=== PATIENT | female | born 1990 | race Caucasian/White ===

== ENCOUNTER 2016-11-30 00:43 | Emergency (ER) | payer OTHER ==
[2016-11-30 01:08] VITALS: BP 134/90; PULSE 67; TEMP 98.1; BMI 24.7
--- NOTE | 2016-11-30 01:33 | PDOC ---
History of Present Illness - General Chief Complaint: Bone Injury Stated Complaint: I THINK I FRACTURE MY ARM Time Seen by Provider: 11/30/16 01:07 History Source: Patient Exam Limitations: No Limitations - History of Present Illness Initial Comments: 11/30/16 01:45 26-year-old female right hand dominant presents to the emergency department complaining of pain to the right elbow. Patient states that she was backing out of her son's closet, she banged her right elbow against the wall. Patient denies any extremity numbness or tingling sensation. Pain is described as 4/10 sharp nonradiating intermittent discomfort. Pain is exacerbated on movement and touch and alleviated at rest. Patient states when she was a toddler she fractured her right elbow x2. Patient denies having surgery in the past Occurred: reports: just prior to arrival Upper Extremity Pain Location: right: elbow Method of Injury: reports: direct blow Modifying Factors: improves with: None Extremity Pain Location - Extremity Pain Location Extremity Pain Locations: right: elbow Past History - Past Medical History Allergies/Adverse Reactions: Allergies Allergy/AdvReac Type Severity Reaction Status Date / Time pineapple Allergy Verified 11/30/16 00:59 Home Medications: Ambulatory Orders NK [No Known Home Medication] 11/30/16 GI Disorders: Yes (Kidney stones) Disorders: Yes (kidney stones) Hypercholesterolemia: Yes - Psycho/Social/Smoking Cessation Hx Anxiety: No Suicidal Ideation: No Smoking Status: No Smoking History: Never smoked Have you smoked in the past 12 months: No Number of Cigarettes Smoked Daily: 0 Hx Alcohol Use: No Drug/Substance Use Hx: No Substance Use Type: None Hx Substance Use Treatment: No Review of Systems - Review of Systems Able to Perform ROS?: Yes Comments:: 11/30/16 01:42 CONSTITUTIONAL: Absent: fever, chills, diaphoresis, generalized weakness, malaise, loss of appetite MUSCULOSKELETAL: right elbow/pain Absent: myalgia, arthralgia, joint swelling SKIN: Absent: rash, itching, pallor Is the patient limited Faroese proficient: No *Physical Exam - Vital Signs Last Vital Signs Temp Pulse Resp BP Pulse Ox 98.1 F 67 18 134/90 99 11/30/16 01:00 11/30/16 01:00 11/30/16 01:00 11/30/16 01:00 11/30/16 01:00 - Physical Exam Comments: 11/30/16 01:44 GENERAL: Well developed, well nourished. Awake and alert. No acute distress. MUSCULOSKELETAL Right elbow: decreased R.O.M./neg swelling, +Pain on palp neg obvious deformities No bony deformities or tenderness. No cyanosis. No clubbing. No edema. No calf tenderness. SKIN: Warm and dry. Normal capillary refill. No rashes. No jaundice. *DC/Admit/Observation/Transfer Diagnosis at time of Disposition: Contusion of right elbow Qualifiers: Encounter type: initial encounter Qualified Code(s): S50.01XA - Contusion of right elbow, initial encounter - Discharge Dispostion Admit: No - Referrals Referrals: Lorena Yap MD [Primary Care Provider] - Britton Molina MD [Staff Physician] - - Patient Instructions Printed Discharge Instructions: DI for Contusion Additional Instructions: Return to the Er for severe/persistent/worsening symptoms
[2016-11-30] MEDS ORDERED: IBUPROFEN 600 MG TABLET (FP) PO ONE ×2 (02:47→02:50)
== END 2016-11-30 03:44 | disposition home or self-care (01) ==
LOC: JER 00:43
DX: S50.01XA Contusion of right elbow, initial encounter (principal); W22.01XA Walked into wall, initial encounter; Y93.89 Activity, other specified; Y92.008 Other place in unspecified non-institutional (private) residence as the place of occurrence of the external cause; Z87.442 Personal history of urinary calculi; E78.00 Pure hypercholesterolemia, unspecified
CPT/HCPCS: 73070-TC-RT; 84703; 99281-25

== ENCOUNTER 2017-02-25 13:27 | Emergency (ER) | payer OTHER ==
[2017-02-25 13:32] VITALS: BMI 26.2
[2017-02-25] MEDS ORDERED: SODIUM CHLORIDE 1,000 ML IV STA (13:49)
[2017-02-25] MEDS ORDERED: METOCLOPRAMIDE HCL INJECTION 10 MG/2 ML VIAL IVPB ONE (13:49)
--- NOTE | 2017-02-25 13:49 | PDOC ---
History of Present Illness - General History Source: Patient Exam Limitations: No Limitations - History of Present Illness Initial Comments: 02/25/17 13:56 The patient is a 26 year old female, with a significant past medical history of hypercholesterolemia and kidney stones (since 2012), who presents to the emergency department s/p lipotripsy with post-op nausea and vomiting. The patient reports the surgery was done yesterday, at [facility] by Dr.Neil Alvarado, to remove a kidney stone on the right side. The patient reports the next day having nausea and vomiting right after eating, noting blood in her vomit. She notes her urine has been pink in color, with some blood clots in her urine. She arrives also with chief complaints of right sided flank pain. She denies recent fevers, chills, headache or dizziness. She denies recent nausea, vomit, diarrhea or constipation. She denies recent dysuria, frequency, or urgency. She denies recent chest pain or shortness of breath. Allergies: NKA Past surgical history: None reported. Social history: Nonsmoker. Denies EtOH use and recreational drug use. Primary Care Physician: <Hussein Hirsch - Last Filed: 02/25/17 15:42> - General History Source: Patient Exam Limitations: No Limitations <Rylie Pickett - Last Filed: 02/25/17 17:11> - General Chief Complaint: Nausea/Vomiting Stated Complaint: POST-SURG COMPLICATIONS/ VOMITING Time Seen by Provider: 02/25/17 13:48 Past History <Hussein Hirsch - Last Filed: 02/25/17 15:42> - Past Medical History GI Disorders: Yes (Kidney stones) Disorders: Yes (kidney stones) Hypercholesterolemia: Yes - Psycho/Social/Smoking Cessation Hx Anxiety: No Suicidal Ideation: No Smoking Status: No Smoking History: Never smoked Have you smoked in the past 12 months: No Number of Cigarettes Smoked Daily: 0 Hx Alcohol Use: Yes (SOCIAL) Drug/Substance Use Hx: No Substance Use Type: None Hx Substance Use Treatment: No <Rylie Pickett - Last Filed: 02/25/17 17:11> - Past Medical History Allergies/Adverse Reactions: Allergies Allergy/AdvReac Type Severity Reaction Status Date / Time pineapple Allergy Difficulty Verified 02/25/17 13:32 Breathing Home Medications: Ambulatory Orders NK [No Known Home Medication] 11/30/16 Review of Systems - Review of Systems Able to Perform ROS?: Yes Comments:: 02/25/17 13:56 GENERAL/CONSTITUTIONAL: No: fever, chills, weakness, loss of appetite. HEAD, EYES, EARS, NOSE AND THROAT: No: change in vision, ear pain, discharge, sore throat, throat swelling. CARDIOVASCULAR: No: chest pain, lightheadedness, palpitations, syncope RESPIRATORY: No: cough, shortness of breath, wheezing, hemoptysis, stridor. GASTROINTESTINAL: +: nausea, vomiting, flank pain. No: diarrhea, abdominal cramping, rectal bleeding, constipation. GENITOURINARY: No: dysuria, frequency, urgency. MUSCULOSKELETAL: No: back pain, neck pain, joint pain, muscle swelling or pain SKIN : No: lesions, pallor, rash or easy bruising. NEUROLOGIC: No: headache, vertigo, paresthesias, weakness ENDOCRINE: No: unexplained weight gain or loss HEMATOLOGIC/LYMPHATIC: No: anemia, easy bleeding, swelling nodes. <Hussein Hirsch - Last Filed: 02/25/17 15:42> *Physical Exam - Vital Signs Last Vital Signs Temp Pulse Resp BP Pulse Ox 97.6 F 61 18 119/68 100 02/25/17 13:28 02/25/17 13:28 02/25/17 13:28 02/25/17 13:28 02/25/17 13:28 - Physical Exam Comments: 02/25/17 13:57 GENERAL: The patient is in no acute distress. HEAD: Normal with no signs of trauma. EYES: PERRLA, EOMI, sclera anicteric, conjunctiva clear. ENT: Ears normal, nares patent, oropharynx clear without exudates. Moist mucous membranes. NECK: Normal range of motion, supple without lymphadenopathy, JVD, or masses. LUNGS: Breath sounds equal, clear to auscultation bilaterally. No wheezes, and no crackles. HEART: Regular rate and rhythm, normal S1 and S2 without murmur, rub or gallop. ABDOMEN: Soft, normoactive bowel sounds.Right sided abdominal pain and tenderness. EXTREMITIES: Normal range of motion, no edema. No clubbing or cyanosis. No erythema, or tenderness. NEUROLOGICAL: Cranial nerves II through XII grossly intact. Normal speech. No focal neurological deficits. MUSCULOSKELETAL: Back non-tender to palpation, no CVA tenderness SKIN: Warm, Dry, normal turgor, no rashes or lesions noted.: <Hussein Hirsch - Last Filed: 02/25/17 15:42> - Vital Signs Last Vital Signs Temp Pulse Resp BP Pulse Ox 97.6 F 61 18 119/68 100 02/25/17 13:28 02/25/17 13:28 02/25/17 13:28 02/25/17 13:28 02/25/17 13:28 <Rylie Pickett - Last Filed: 02/25/17 17:11> ED Treatment Course - LABORATORY CBC & Chemistry Diagram: 02/25/17 14:15 02/25/17 14:15 <Hussein Hirsch - Last Filed: 02/25/17 15:42> - LABORATORY CBC & Chemistry Diagram: 02/25/17 14:15 02/25/17 14:15 <Rylie Pickett - Last Filed: 02/25/17 17:11> Medical Decision Making - Medical Decision Making 02/25/17 15:42 Call made to , awaiting call back. <Hussein Hirsch - Last Filed: 02/25/17 15:42> - Medical Decision Making 02/25/17 13:48 A portion of this note was documented by scribe services under my direction. I have reviewed the details of the note, within reason, and agree with the documentation with the following case summary and management plan written by me. Nursing documentation reviewed and incorporated into medical decision making 26 yo F h/o renal stones in the past pt presents to the ER due to severe right sided abdominal pain Pt is s/p lithotrypsy and stenting yesterday Pt has had severe pain since then Pt has nausea and vomiting DD: Obstructing stone, Stent movement, pyelonephritis Will do labs Will do KUB Will re assess 02/25/17 15:04 Laboratory Tests 02/25/17 02/25/17 02/25/17 14:15 14:15 14:15 WBC 9.8 D Hgb 13.3 Hct 38.6 Plt Count 267 D BUN 6 L Creatinine 0.7 D Urine Blood 3+ H Urine Nitrite Negative Ur Leukocyte Esterase 1+ H 02/25/17 16:[address] alvarado he states if no fever, no leukocytosis, pt can be discharged His colleague also called States, pt should be given Ceftriaxone as well 02/25/17 16:55 Will discharge to home <Rylie Pickett - Last Filed: 02/25/17 17:11> *DC/Admit/Observation/Transfer - Attestations Scribe Attestion: 02/25/17 13:57 Documentation prepared by Hussein Hirsch, acting as medical office assistant instructor for Rylie Pickett MD. <Hussein Hirsch - Last Filed: 02/25/17 15:42> - Discharge Dispostion Admit: No <Rylie Pickett - Last Filed: 02/25/17 17:11> Diagnosis at time of Disposition: Pain due to ureteral stent Qualifiers: Encounter type: initial encounter Qualified Code(s): T83.84XA - Pain due to genitourinary prosthetic devices, implants and grafts, initial encounter - Discharge Dispostion Disposition: HOME Condition at time of disposition: Stable - Referrals Referrals: Lorena Yap MD [Primary Care Provider] - - Patient Instructions Printed Discharge Instructions: Ureteral Stent Placement, DI for Ureteral Stent Placement Additional Instructions: Thank you for coming in to the ER today Please Monitor yourself for fevers Please follow up tomorrow in Dr Alvarado's office at 9am Please take pain medications as prescribed for pain You MUST return to the ER for fevers, severe pain, vomiting, any other concerns or complaints
[2017-02-25] MEDS ORDERED: HYDROmorphone HCL CARPU-JECT 1 MG/1 ML DISP.SYRIN IVPB ONE (13:58)
[2017-02-25] MEDS ORDERED: METOCLOPRAMIDE HCL INJECTION 10 MG/2 ML VIAL ONE (14:02)
[2017-02-25] MEDS ORDERED: HYDROmorphone HCL CARPU-JECT 1 MG/1 ML DISP.SYRIN ONE (14:02)
[2017-02-25 14:30] LABS: URINE APPEARANCE CLEAR; URINE BILIRUBIN NEGATIVE (NEGATIVE); URINE COLOR STRAW; URINE GLUCOSE (UA) NEGATIVE (NEGATIVE); URINE KETONE TRACE (NEGATIVE); URINE NITRITE NEGATIVE (NEGATIVE); URINE UROBILINOGEN NEGATIVE E.U./dl (0.2-1.0)
[2017-02-25 14:33] LABS: BASOPHIL 0.5 % (0-2.0); EOSINOPHIL 1.2 % (0-4.5); MCH 31.3 pg (25.7-33.7); MCHC 34.5 g/dl (32.0-36.0); MEAN CELL VOLUME 90.7 fl (80-96); MEAN PLT VOLUME 9.5 fl (7.5-11.1); NEUTROPHILS 69.2 % (42.8-82.8); PLATELET COUNT 267 K/MM3 (134-434); RDW 12.8 % (11.6-15.6); WHITE BLOOD COUNT 9.8 K/mm3 (4.0-10.0)
[2017-02-25 14:54] LABS: ALBUMIN 3.8 g/dl (3.4-5.0); ALK PHOS 59 U/L (45-117); AMYLASE 43 U/L (25-115); ANION GAP 9 (8-16); BILIRUBIN,TOTAL 0.5 mg/dL (0.2-1.0); CALCIUM 9.3 mg/dL (8.5-10.1); CO2 22 mmol/L (21-32); CREATININE 0.7 mg/dL (0.55-1.02); GLUCOSE,RANDOM 88 mg/dL (74-106); SGOT/AST 18 U/L (15-37); SGPT/ALT 17 U/L (12-78); TOT PROT 7.7 g/dl (6.4-8.2); URINE BLOOD 3+ (NEGATIVE); URINE LEUK ESTERASE 1+ (NEGATIVE); URINE PROTEIN 1+ (NEGATIVE)
[2017-02-25 15:04] LABS: URINE BACTERIA RARE /hpf (NONE SEEN); URINE MUCUS RARE; URINE RBC 44 /hpf (0-3); URINE WBC 17 /hpf (3-5)
[2017-02-25] MEDS ORDERED: CEFTRIAXONE 1 GM in DEXTROSE 5%-WATER - 50 ML IVPB ONE (16:20)
[2017-02-25] MEDS ORDERED: CEFTRIAXONE 50 ML ONE (16:23)
[2017-02-25 17:20] VITALS: BP 125/80; PULSE 87; TEMP 98.3
== END 2017-02-25 17:20 | disposition home or self-care (01) ==
LOC: JER 13:27
PROC: 3E02329 Introduction of Other Anti-infective into Muscle, Percutaneous Approach (ICD-10-PCS; principal; 2017-02-25)
PROC: 3E033NZ Introduction of Analgesics, Hypnotics, Sedatives into Peripheral Vein, Percutaneous Approach (ICD-10-PCS; 2017-02-25)
PROC: 3E033GC Introduction of Other Therapeutic Substance into Peripheral Vein, Percutaneous Approach (ICD-10-PCS; 2017-02-25)
PROC: 3E0337Z Introduction of Electrolytic and Water Balance Substance into Peripheral Vein, Percutaneous Approach (ICD-10-PCS; 2017-02-25)
DX: T83.84XA Pain due to genitourinary prosthetic devices, implants and grafts, initial encounter (principal)
CPT/HCPCS: 36415; 74000-TC; 80053; 81003; 81015; 82150; 83690; 84703; 85025; 87086; 96361; 96365; 96375; 99283-25

== ENCOUNTER 2017-07-29 22:45 | Emergency (ER) | payer OTHER ==
[2017-07-29 23:02] VITALS: BP 142/93; PULSE 78; TEMP 98.5; BMI 26.4
--- NOTE | 2017-07-30 01:01 | PDOC ---
History of Present Illness - History of Present Illness Initial Comments: 07/30/17 01:07 The patient is a 27 year old female, with a significant past medical history of hypercholesterolemia and kidney stones (since 2012), who presents to the emergency department with pain under the 4th digit of her left foot. The patient reports having a pedicure about 1.5 weeks ago, developing a blister to the base of her left 4th toe a day or two afterwards that resolved untreated after a couple of days, however, presents today with tenderness to the site where the blister initially was. She reports there is pain with movement of her 4th left toe. Allergies: NKA Past surgical history: None reported. Social history: Nonsmoker. Denies EtOH use and recreational drug use. Primary Care Physician: <Toyin Michelle - Last Filed: 07/30/17 01:07> - General History Source: Patient <JaquanJosh rivera - Last Filed: 07/30/17 01:31> - General Chief Complaint: Pain Stated Complaint: FOOT INJURY Time Seen by Provider: 07/30/17 00:58 Past History <Toyin Michelle - Last Filed: 07/30/17 01:07> - Past Medical History COPD: No GI Disorders: Yes (Kidney stones) Disorders: Yes (kidney stones) Hypercholesterolemia: Yes - Suicide/Smoking/Psychosocial Hx Smoking Status: No Smoking History: Never smoked Have you smoked in the past 12 months: No Number of Cigarettes Smoked Daily: 0 Information on smoking cessation initiated: No Hx Alcohol Use: No Drug/Substance Use Hx: No Substance Use Type: None Hx Substance Use Treatment: No <Josh Marvin - Last Filed: 07/30/17 01:31> - Past Medical History Allergies/Adverse Reactions: Allergies Allergy/AdvReac Type Severity Reaction Status Date / Time pineapple Allergy Difficulty Verified 07/29/17 22:52 Breathing Home Medications: Ambulatory Orders Ibuprofen [Motrin] 600 mg PO TID #30 tablet 07/30/17 Oxycodone HCl/Acetaminophen [Percocet 5-325 mg Tablet] 1 - 2 tab PO Q6H #14 tablet MDD 4 07/30/17 Sulfamethoxazole/Trimethoprim [Bactrim *Ds*] 1 tab PO BID #20 tablet 07/30/17 Review of Systems - Review of Systems Able to Perform ROS?: Yes Comments:: 07/30/17 01:07 CONSTITUTIONAL: Absent: fever, no chills, no fatigue EYES: Absent: visual changes ENT: Absent: ear pain, no sore throat CARDIOVASCULAR: Absent: chest pain, no palpitations RESPIRATORY: Absent: cough, no SOB GI: Absent: abdominal pain, no nausea, no vomiting, no constipation, no diarrhea GENITOURINARY: Absent: dysuria, no frequency, no hematuria MUSCULOSKELETAL: (+) pain to area under the left 4th toe. Absent: back pain, no arthralgia, no myalgia SKIN: Absent: rash NEURO: Absent: headache <Toyin Michelle - Last Filed: 07/30/17 01:07> *Physical Exam - Vital Signs Last Vital Signs Temp Pulse Resp BP Pulse Ox 98.5 F 78 18 142/93 99 07/29/17 22:53 07/29/17 22:53 07/29/17 22:53 07/29/17 22:53 07/29/17 22:53 - Physical Exam Comments: 07/30/17 01:08 GENERAL: Well-appearing, well-nourished. No apparent distress. HEENT: Normocephalic, atraumatic. PERRL, EOM intact. CARDIOVASCULAR: Normal S1, S2. Regular rate and rhythm. PULMONARY: Clear to auscultation bilaterally. ABDOMEN: Soft, non-distended, non-tender. EXTREMITIES: (+) erythema and slight fluctuance at the base of the foot just underneath the 4th digit. No erythema to rest of left foot or left leg. Good ROM of left ankle , but pain with active and passive motion of the left 4th toe. Normal ROM in all four extremities. No gross deformities. SKIN: (+) see extremities. Warm, dry. No rash NEUROLOGICAL: No focal neurological deficits. <Toyin Michelle - Last Filed: 07/30/17 01:07> - Vital Signs Last Vital Signs Temp Pulse Resp BP Pulse Ox 98.5 F 78 18 142/93 99 07/29/17 22:53 07/29/17 22:53 07/29/17 22:53 07/29/17 22:53 07/29/17 22:53 <Josh Marvin - Last Filed: 07/30/17 01:31> Medical Decision Making - Medical Decision Making 07/30/17 01:14 Dr. Marvin: The scribe's documentation has been prepared under my direction and personally reviewed by me in its entirery. I confirm that the note above accurately reflects all work, treatment, procedures, and medical decision making performed by me. <Josh Marvin - Last Filed: 07/30/17 01:31> *DC/Admit/Observation/Transfer - Attestations Scribe Attestion: 07/30/17 01:09 Documentation prepared by Toyin Michelle, acting as medical support assistant for Josh Marvin DO <Toyin Michelle - Last Filed: 07/30/17 01:07> - Discharge Dispostion Admit: No <Josh Marvin - Last Filed: 07/30/17 01:31> Diagnosis at time of Disposition: Wound infection, Foot pain, left - Discharge Dispostion Disposition: HOME Condition at time of disposition: Stable - Prescriptions Prescriptions: Ibuprofen [Motrin] 600 mg PO TID #30 tablet Oxycodone HCl/Acetaminophen [Percocet 5-325 mg Tablet] 1 - 2 tab PO Q6H #14 tablet MDD 4 Sulfamethoxazole/Trimethoprim [Bactrim *Ds*] 1 tab PO BID #20 tablet - Referrals Referrals: Lorena Yap MD [Primary Care Provider] - - Patient Instructions Printed Discharge Instructions: DI for Foot Pain, DI for Wound Infection Additional Instructions: Take medication as directed. Keep wound clean and dry. Wash with soap and water. Return if any problems. Wound might need to be drained in the nest few days. Please follow up with your doctor or here in the ER for re- evaluation. - Post Discharge Activity Forms/Work/School Notes: Back to Work
[2017-07-30] MEDS ORDERED: IBUPROFEN 600 MG TABLET (FP) PO STA (01:03)
[2017-07-30] MEDS ORDERED: SULFAMETHOXAZOLE/TRIMETHOPRIM 800MG/160MG D.S. TABLET PO ONE (01:03)
[2017-07-30] MEDS ORDERED: SULFAMETHOXAZOLE/TRIMETHOPRIM 800MG/160MG D.S. TABLET ONE (01:12)
[2017-07-30] MEDS ORDERED: IBUPROFEN 600 MG TABLET (FP) PO ONE (01:12)
== END 2017-07-30 01:21 | disposition home or self-care (01) ==
LOC: JER 22:45
DX: S91.105A Unspecified open wound of left lesser toe(s) without damage to nail, initial encounter (principal); X58.XXXA Exposure to other specified factors, initial encounter; Y93.89 Activity, other specified; Y92.89 Other specified places as the place of occurrence of the external cause; Y99.8 Other external cause status
CPT/HCPCS: 99281-25

== ENCOUNTER 2018-05-10 14:19 | Emergency (ER) | payer OTHER ==
[2018-05-10] MEDS ORDERED: SODIUM CHLORIDE 1,000 ML IV STA (14:32)
[2018-05-10] MEDS ORDERED: FAMOTIDINE 20 MG/50 ML IVPB 20 MG/50 ML MG IVPB ONE ×2 (14:32→14:53)
[2018-05-10] MEDS ORDERED: ALBUTEROL SO4 2.5/IPRATROPIUM 0.5 INH SOL 3 ML VIAL.NEB. NEB ONE ×5 (14:32→19:32)
--- NOTE | 2018-05-10 14:32 | PDOC ---
History of Present Illness - General Stated Complaint: Allergic Reaction Time Seen by Provider: 05/10/18 14:27 History Source: Patient Exam Limitations: No Limitations - History of Present Illness Initial Comments: 05/10/18 14:40 Patient is a 27-year-old female with no past medical history who presents to the emergency department today for an ALLERGIC reaction. Patient states she was out to lunch and unknowingly had some pineapple juice. Patient carries an EpiPen for her pineapple ALLERGY. She states that shortly after drinking the juice she felt her throat got tight and had difficulty breathing. She self administered her EpiPen in the left lateral thigh. She was transported to the emergency department by EMS. In route she was given 10 mg of Decadron, 50 mg of Benadryl IV, and a DuoNeb treatment. Patient states that she still feels like her throat is itchy. States that she can breathe better however she still feels tight. Vital signs: O2 Sat 99% on 10L NRB HR 89 Past History - Travel Traveled outside of the country in the last 30 days: No Close contact w/someone who was outside of country & ill: No - Past Medical History Allergies/Adverse Reactions: Allergies Allergy/AdvReac Type Severity Reaction Status Date / Time pineapple Allergy Difficulty Verified 07/29/17 22:52 Breathing Home Medications: Ambulatory Orders Ibuprofen [Motrin] 600 mg PO TID #30 tablet 07/30/17 Oxycodone HCl/Acetaminophen [Percocet 5-325 mg Tablet] 1 - 2 tab PO Q6H #14 tablet MDD 4 07/30/17 Sulfamethoxazole/Trimethoprim [Bactrim *Ds*] 1 tab PO BID #20 tablet 07/30/17 COPD: No GI Disorders: Yes (Kidney stones) Disorders: Yes (kidney stones) Hypercholesterolemia: Yes - Suicide/Smoking/Psychosocial Hx Smoking Status: No Smoking History: Never smoked Have you smoked in the past 12 months: No Number of Cigarettes Smoked Daily: 0 Hx Alcohol Use: Yes (SOCIAL) Drug/Substance Use Hx: No Substance Use Type: None Hx Substance Use Treatment: No Review of Systems - Review of Systems Able to Perform ROS?: Yes Comments:: 05/10/18 14:35 CONSTITUTIONAL: Absent: fever, chills, diaphoresis, generalized weakness, malaise, loss of appetite HEENT: Absent: rhinorrhea, nasal congestion, throat pain, throat swelling, difficulty swallowing, mouth swelling, ear pain, eye pain, visual Changes CARDIOVASCULAR: Absent: chest pain, loss of consciousness, palpitations, irregular heart rate, peripheral edema RESPIRATORY: Present: difficulty breathing, cough Absent: cough, shortness of breath, dyspnea with exertion, orthopnea, wheezing, stridor, hemoptysis GASTROINTESTINAL: Absent: abdominal pain, abdominal distension, nausea, vomiting, diarrhea, constipation, melena, hematochezia GENITOURINARY: Absent: dysuria, frequency, urgency, hesitancy, hematuria, flank pain, genital pain MUSCULOSKELETAL: Absent: myalgia, arthralgia, joint swelling SKIN: Present: rash, itching Absent: rash, itching, pallor HEMATOLOGIC/IMMUNOLOGIC: Absent: easy bleeding, easy bruising, lymphadenopathy, frequent infections ENDOCRINE: Absent: unexplained weight gain, unexplained weight loss, heat intolerance, cold intolerance NEUROLOGIC: Absent: headache, focal weakness or paresthesias, dizziness, unsteady gait, seizure, mental status changes, bladder or bowel incontinence PSYCHIATRIC: Absent: anxiety, depression, suicidal or homicidal ideation, hallucinations. Is the patient limited Khmer proficient: No *Physical Exam - Physical Exam Comments: 05/10/18 14:36 GENERAL: Well developed, well nourished. Awake and alert. No acute distress. HEENT: Normocephalic, atraumatic. PERRLA, EOMI. No conjunctival pallor. Sclera are non- icteric. Moist mucous membranes. Oropharynx is clear with no evidence of edema. Uvula is midline. NECK: Supple. Full ROM. No JVD. Carotid pulses 2+ and symmetric, without bruits. No thyromegaly. No lymphadenopathy. CARDIOVASCULAR: Regular rate and rhythm. No murmurs, rubs, or gallops. Distal pulses are 2+ and symmetric. PULMONARY: Lung sounds at the apices are tight with slight expiratory wheezing. Lungs with fair aeration to the bases. No wheezing, rales or rhonchi. ABDOMINAL: Soft. Non-tender. Non-distended. No rebound or guarding. No organomegaly. Normoactive bowel sounds. MUSCULOSKELETAL Normal range of motion at all joints. No bony deformities or tenderness. No CVA tenderness. EXTREMITIES: No cyanosis. No clubbing. No edema. No calf tenderness. SKIN: Flushed skin to neck and arms b/l. Warm and dry. Normal capillary refill. No jaundice. NEUROLOGICAL: Alert, awake, appropriate. Cranial nerves 2-12 intact. No deficits to light touch and temperature in face, upper extremities and lower extremities. No motor deficits in the in face, upper extremities and lower extremities. Normoreflexic in the upper and lower extremities. Normal speech. Toes are down- going bilaterally. Gait is normal without ataxia. PSYCHIATRIC: Cooperative. Good eye contact. Appropriate mood and affect. Medical Decision Making - Medical Decision Making 05/10/18 14:41 Patient is a 27-year-old female with no past medical history who presents to the emergency department today for an ALLERGIC reaction. Patient states she was out to lunch and unknowingly had some pineapple juice. -Pt already received steroids and benadryl by EMS, Epipen was self administered -Exam withe expiratory wheezing at the apices, posterior pharynx without edema and uvula midline -Will give pepcid and fluids at this time -Will observe in ED for 6 hours given anaphylactic response. 05/10/18 19:12 -repeat lung sounds with less wheezing. -Pt still needs two hours of observation for rebound reaction -sign out given to Nara Langford NP *DC/Admit/Observation/Transfer Diagnosis at time of Disposition: Allergic reaction - Referrals Referrals: Lorena Yap MD [Primary Care Provider] - - Patient Instructions - Post Discharge Activity
--- NOTE | 2018-05-10 14:32 | PDOC ---
Medical Decision Making - Medical Decision Making 05/10/18 14:32 Pt seen by Midlevel Provider under my direct supervision H/o allergic reaction to Pineapple S/p ingestion of pineapple juice Pt gave herself Epi Pt interviewed and examined will observe for 6 hrs Anticipate discharge I agree with plan as outlined by Midlevel Provider *DC/Admit/Observation/Transfer Diagnosis at time of Disposition: Allergic reaction, Anaphylactic reaction - Discharge Dispostion Disposition: HOME - Prescriptions Prescriptions: Albuterol Sulfate Inhaler - [Ventolin HFA Inhaler -] 1 - 2 inh PO Q4H PRN #1 inhaler PRN Reason: Wheezing Dexamethasone [Decadron -] 10 mg PO ONCE #3 tablet EPINEPHrine (EPI-PEN 0.3MG) [Epipen 0.3MG -] 0.3 mg IM ASDIR #2 pens Famotidine [Pepcid] 40 mg PO DAILY #20 tablet Loratadine [Claritin] 10 mg PO DAILY #20 tablet - Referrals Referrals: Lorena Yap MD [Primary Care Provider] - - Patient Instructions Printed Discharge Instructions: DI for Adverse Drug Reaction -- Allergic Additional Instructions: you may take dexamethasone if symptoms continue in 24- 48 hours. take pepcid as ordered. take claritin as ordered/ - Post Discharge Activity Forms/Work/School Notes: Back to Work
[2018-05-10] MEDS ORDERED: ONDANSETRON 4 MG/2 ML VIAL ONE (14:50)
[2018-05-10] MEDS ORDERED: DEXAMETHASONE SOD PHOSPHATE 10 MG/1 ML VIAL ONE (14:50)
[2018-05-10 14:53] VITALS: BMI 40.1
--- NOTE | 2018-05-10 19:16 | PDOC ---
*Physical Exam - Vital Signs Last Vital Signs Temp Pulse Resp BP Pulse Ox 98.2 F 77 20 149/85 100 05/10/18 14:46 05/10/18 14:46 05/10/18 14:46 05/10/18 14:46 05/10/18 14:46 - Physical Exam General Appearance: Yes: Appropriately Dressed Respiratory/Chest: positive: Other (mild end expiratory wheeze) Cardiovascular: positive: Regular Rhythm, Regular Rate Gastrointestinal/Abdominal: positive: Normal Bowel Sounds, Soft Extremity: positive: Normal Capillary Refill, Normal Inspection, Normal Range of Motion Integumentary: positive: Normal Color, Dry, Warm Neurologic: positive: Fully Oriented, Alert, Normal Mood/Affect ED Treatment Course - Medications Given in the ED: ED Medications Discontinued Medications Generic Name Dose Route Start Last Admin Trade Name Freq PRN Reason Stop Dose Admin Albuterol/Ipratropium 1 amp 05/10/18 14:32 05/10/18 15:02 Duoneb - NEB 05/10/18 14:33 1 amp ONCE ONE Administration Famotidine/Sodium Chloride 20 mg in 50 mls @ 100 mls/hr 05/10/18 14:32 15:06 Pepcid 20 Mg Premixed Ivpb - IVPB 05/10/18 15:01 100 mls/hr ONCE ONE Administration Sodium Chloride 1,000 mls @ 1,000 mls/hr 05/10/18 14:32 05/10/18 15:02 Normal Saline - IV 05/10/18 15:31 1,000 mls/hr ASDIR STA Administration Medical Decision Making - Medical Decision Making 05/10/18 20:33 improved aeration. will d/c home with additional decadron dose x 1, pepcid, albuterol, epipen. strict return precautions reviewed with patient. patient verbalized understanding. *DC/Admit/Observation/Transfer Diagnosis at time of Disposition: Allergic reaction Qualifiers: Encounter type: initial encounter Qualified Code(s): T78.40XA - Allergy, unspecified, initial encounter Anaphylactic reaction Qualifiers: Encounter type: initial encounter Qualified Code(s): T78.2XXA - Anaphylactic shock, unspecified, initial encounter - Prescriptions Prescriptions: Albuterol Sulfate Inhaler - [Ventolin HFA Inhaler -] 1 - 2 inh PO Q4H PRN #1 inhaler PRN Reason: Wheezing Dexamethasone [Decadron -] 10 mg PO ONCE #3 tablet EPINEPHrine (EPI-PEN 0.3MG) [Epipen 0.3MG -] 0.3 mg IM ASDIR #2 pens Famotidine [Pepcid] 40 mg PO DAILY #20 tablet Loratadine [Claritin] 10 mg PO DAILY #20 tablet - Referrals Referrals: Lorena Yap MD [Primary Care Provider] - - Patient Instructions Printed Discharge Instructions: DI for Adverse Drug Reaction -- Allergic Additional Instructions: you may take dexamethasone if symptoms continue in 24- 48 hours. take pepcid as ordered. take claritin as ordered/ - Post Discharge Activity Forms/Work/School Notes: Back to Work
[2018-05-10] MEDS ORDERED: LORATADINE 10 MG TABLET PO ONE (20:00)
[2018-05-10] MEDS ORDERED: LORATADINE 10 MG TABLET ONE (20:38)
[2018-05-10 20:43] VITALS: BP 134/84; PULSE 92; TEMP 97.9
== END 2018-05-10 20:49 | disposition home or self-care (01) ==
LOC: JER 14:19
PROC: 3E0F7GC Introduction of Other Therapeutic Substance into Respiratory Tract, Via Natural or Artificial Opening (ICD-10-PCS; principal; 2018-05-10)
PROC: 3E0F7GC Introduction of Other Therapeutic Substance into Respiratory Tract, Via Natural or Artificial Opening (ICD-10-PCS; 2018-05-10)
PROC: 3E0F7GC Introduction of Other Therapeutic Substance into Respiratory Tract, Via Natural or Artificial Opening (ICD-10-PCS; 2018-05-10)
PROC: 3E0337Z Introduction of Electrolytic and Water Balance Substance into Peripheral Vein, Percutaneous Approach (ICD-10-PCS; 2018-05-10)
PROC: 3E033GC Introduction of Other Therapeutic Substance into Peripheral Vein, Percutaneous Approach (ICD-10-PCS; 2018-05-10)
DX: T78.40XA Allergy, unspecified, initial encounter (principal); Z91.018 Allergy to other foods
CPT/HCPCS: 94640; 96361; 96365; 99282-25; J7030; J7620

== ENCOUNTER 2019-03-21 14:25 | Emergency (ER) | payer OTHER ==
--- NOTE | 2019-03-21 14:42 | PDOC ---
Rapid Medical Evaluation Chief Complaint: Shortness of Breath Time Seen by Provider: 03/21/19 14:40 Medical Evaluation: Allergies Allergy/AdvReac Type Severity Reaction Status Date / Time pineapple Allergy Difficulty Verified 07/29/17 22:52 Breathing I have performed a brief in-person evaluation of this patient. The patient presents with a chief complaint of: c/o substernal cp and sob for several weeks; worse with trying to burp or pass leon; feels like something is in her chest; her PCP advised her to come to ED for evaluation; is on OCPs Pertinent physical exam findings: In NAD, lungs clear I have ordered the following: Labs, CXR, EKG The patient will proceed to the ED for further evaluation. 03/21/19 14:41
[2019-03-21 14:43] VITALS: BMI 30.2
--- NOTE | 2019-03-21 15:23 | EKG ---
Test Reason : Blood Pressure : / mmHG Vent. Rate : 081 BPM Atrial Rate : 081 BPM P-R Int : 150 ms QRS Dur : 072 ms QT Int : 388 ms P-R-T Axes : 036 046 048 degrees QTc Int : 450 ms NORMAL SINUS RHYTHM NORMAL ECG WHEN COMPARED WITH ECG OF 05-MAR-2016 12:54, NO SIGNIFICANT CHANGE WAS FOUND Confirmed by SUZANNA SHAH MD ([id number]) on 03/21/2019 3:22:40 PM Referred By: Confirmed By:SUZANNA SHAH MD
[2019-03-21 16:29] LABS: BASO % 0.8 % (0-2.0); EOS % 2.2 % (0-4.5); HEMATOCRIT 38.6 % (32.4-45.2); HEMOGLOBIN 13.3 GM/dL (10.7-15.3); LYMPH % 22.5 % (8-40); MCH 31.1 pg (25.7-33.7); MCHC 34.4 g/dl (32.0-36.0); MEAN CELL VOLUME 90.3 fl (80-96); MEAN PLT VOLUME 9.8 fl (7.5-11.1); MONO % 8.4 % (3.8-10.2); NEUT % 66.1 % (42.8-82.8); PLATELET COUNT 281 K/MM3 (134-434); RBC 4.28 M/mm3 (3.60-5.2); RDW 13.7 % (11.6-15.6); WHITE BLOOD COUNT 8.2 K/mm3 (4.0-10.0)
[2019-03-21 17:01] LABS: ALBUMIN 3.6 g/dl (3.4-5.0); ALK PHOS 64 U/L (45-117); ANION GAP 7 MMOL/L (8-16); BILIRUBIN,TOTAL 0.2 mg/dL (0.2-1); BLOOD UREA NITROGEN 9.6 mg/dL (7-18); CALCIUM 9.4 mg/dL (8.5-10.1); CHLORIDE 106 mmol/L (98-107); CO2 26 mmol/L (21-32); CREATININE 0.7 mg/dL (0.55-1.3); GLUCOSE,RANDOM 94 mg/dL (74-106); POTASSIUM 3.9 mmol/L (3.5-5.1); SGOT/AST 13 U/L (15-37); SGPT/ALT 19 U/L (13-61); SODIUM 138 mmol/L (136-145); TOT PROT 7.6 g/dl (6.4-8.2)
--- NOTE | 2019-03-21 17:04 | PDOC ---
History of Present Illness - General Chief Complaint: Shortness of Breath Stated Complaint: SOB/ CHEST PAIN Time Seen by Provider: 03/21/19 14:40 - History of Present Illness Initial Comments: Ms. Almonte is a 28 y/o female with PMH of kidney stones and GERD presenting today with intermittent epigastric abdominal pain for the past month. Reports that the pain is epigastric and radiates up her chest. Worse with eating. Reports very mild shortness of breath at rest. No pleuritic chest pain. Reports that it is associated with a foul taste at the back of her throat when that happens. Also reports left arm tingling and numbness that radiates down to her fingertips and up her left neck. This occurs intermittently without association with the abdominal pain. Denies fever, denies cough, denies nausea/vomiting/hematemesis/hematochezia/ dysuria/hematuria/hemoptysis. Has been driving to [place] and back a few times recently. No hx of blood clots. On control. PMH: GERD, kidney stones Surg: c-sections, no abdominal surgeries SocHx: no smoking, social ETOH Past History - Past Medical History Allergies/Adverse Reactions: Allergies Allergy/AdvReac Type Severity Reaction Status Date / Time pineapple Allergy Difficulty Verified 07/29/17 22:52 Breathing Home Medications: Ambulatory Orders Ibuprofen [Motrin] 600 mg PO TID #30 tablet 07/30/17 Oxycodone HCl/Acetaminophen [Percocet 5-325 mg Tablet] 1 - 2 tab PO Q6H #14 tablet MDD 4 07/30/17 Sulfamethoxazole/Trimethoprim [Bactrim *Ds*] 1 tab PO BID #20 tablet 07/30/17 Albuterol Sulfate Inhaler - [Ventolin HFA Inhaler -] 1 - 2 inh PO Q4H PRN #1 inhaler 05/10/18 Dexamethasone [Decadron -] 10 mg PO ONCE #3 tablet 05/10/18 EPINEPHrine (EPI-PEN 0.3MG) [Epipen 0.3MG -] 0.3 mg IM ASDIR #2 pens 05/10/18 Famotidine [Pepcid] 40 mg PO DAILY #20 tablet 05/10/18 Loratadine [Claritin] 10 mg PO DAILY #20 tablet 05/10/18 Omeprazole 20 mg PO DAILY 14 Days #14 capsule. 03/21/19 COPD: No DVT: No GI Disorders: Yes (Kidney stones) Disorders: Yes (kidney stones) Hypercholesterolemia: Yes - Suicide/Smoking/Psychosocial Hx Smoking Status: No Smoking History: Never smoked Have you smoked in the past 12 months: No Number of Cigarettes Smoked Daily: 0 Information on smoking cessation initiated: No Hx Alcohol Use: No Drug/Substance Use Hx: No Substance Use Type: None Hx Substance Use Treatment: No Review of Systems - Review of Systems Comments:: ROS GENERAL/CONSTITUTIONAL: No fever or chills. No weakness._ HEAD, EYES, EARS, NOSE AND THROAT: No change in vision. No ear pain or discharge. No sore throat._ CARDIOVASCULAR: No chest pain. Reports mild shortness of breath. RESPIRATORY: Denies cough, hemoptysis_ GASTROINTESTINAL: No nausea, vomiting, diarrhea or constipation. Reports abdominal pain. GENITOURINARY: No dysuria, frequency, or change in urination. MUSCULOSKELETAL: No joint or muscle swelling or pain. No back pain. Reports numbness and tingling of the left arm. SKIN: No rash. NEUROLOGIC: No headache, vertigo, loss of consciousness, or change in strength/ sensation._ ENDOCRINE: No increased thirst. No abnormal weight change_ HEMATOLOGIC/LYMPHATIC: No anemia, easy bleeding, or history of blood clots. ALLERGIC/IMMUNOLOGIC: No hives or skin allergy. *Physical Exam - Vital Signs Last Vital Signs Temp Pulse Resp BP Pulse Ox 99.3 F 85 19 139/92 98 03/21/19 14:40 03/21/19 14:40 03/21/19 14:40 03/21/19 14:40 03/21/19 14:40 - Physical Exam Comments: GENERAL: Awake, alert, and oriented to person/place/time, in no acute distress_ HEAD: No signs of trauma, normocephalic, atraumatic _ EYES: PERRLA, EOMI, sclera anicteric, conjunctiva clear_ ENT: Hearing grossly normal, nares patent, oropharynx clear without exudates. No uvular deviation. Moist mucosa_ NECK: Normal ROM, supple, no lymphadenopathy, JVD, or masses_ LUNGS: No distress, speaks in full sentences, clear to auscultation bilaterally _ HEART: Regular rate and rhythm, normal S1 and S2, no murmurs appreciated, peripheral pulses normal and equal bilaterally._ ABDOMEN: Soft. No tenderness abdomen, pain is non-reproducible on exam. No guarding, no rebound. No masses_ EXTREMITIES: Normal inspection, Normal range of motion, no edema. No clubbing or cyanosis. Left upper extremity pain and numbness is non reproducible. Full ROM. Neurovascularly intact. Pot Room Supervisor strength equal bilaterally. NEUROLOGICAL: Cranial nerves II through XII grossly intact. Normal speech, normal gait, no focal sensorimotor deficits _ SKIN: Warm, Dry, normal turgor, no rashes or lesions noted_ ED Treatment Course - LABORATORY CBC & Chemistry Diagram: 03/21/19 16:04 03/21/19 16:04 - ADDITIONAL ORDERS Additional order review: Laboratory Results 03/21/19 16:04 Sodium 138 Potassium 3.9 Chloride 106 Carbon Dioxide 26 Anion Gap 7 L BUN 9.6 Creatinine 0.7 Est GFR (CKD-EPI)AfAm 134.75 Est GFR (CKD-EPI)NonAf 116.26 Random Glucose 94 Calcium 9.4 Total Bilirubin 0.2 AST 13 L ALT 19 Alkaline Phosphatase 64 Troponin I < 0.02 Total Protein 7.6 Albumin 3.6 03/21/19 16:04 RBC 4.28 MCV 90.3 MCHC 34.4 RDW 13.7 MPV 9.8 Neutrophils % 66.1 Lymphocytes % 22.5 Monocytes % 8.4 Eosinophils % 2.2 D Basophils % 0.8 Medical Decision Making - Medical Decision Making 28F with hx of GERD and kidney stones presenting with epigastric abdominal pain for the past 3 weeks. DDx includes r/o ACS vs gastric ulcer vs gallstones vs musculoskeletal. Obtain CBC, CMP, EKG, CXR, trop, d-dimer, lipase. 03/21/19 1800 D-dimer elevated. Plan for CTA. 03/21/19 21:18 CTA shows no PE or acute intrathoracic process. CXR shows no acute intrathoracic process. EKG shows NSR 81 bpm, no axis deviation, no ST elevation or depression, QTc 450 ms. 03/21/19 21:37 Labs reviewed wnl. Plan to d/c home with prilosec and f/u PCP. *DC/Admit/Observation/Transfer Diagnosis at time of Disposition: GERD (gastroesophageal reflux disease) Qualifiers: Esophagitis presence: esophagitis presence not specified Qualified Code(s): K21.9 - Gastro-esophageal reflux disease without esophagitis - Discharge Dispostion Disposition: HOME Condition at time of disposition: Stable Decision to Admit order: No - Prescriptions Prescriptions: Omeprazole 20 mg PO DAILY 14 Days #14 capsule. - Referrals - Patient Instructions Printed Discharge Instructions: DI for Gastroesophageal Reflux Disease (GERD) Additional Instructions: Please take Prilosec 20 mg once a day for 14 days. Please make an appointment to follow up with your primary care physician. If you experience any new, worsening, or concerning symptoms, including fever, severe abdominal pain, nausea/vomiting, blood in the vomit or stool, or any other concerns, please return to the emergency room. - Post Discharge Activity
[2019-03-21] MEDS ORDERED: FAMOTIDINE 20 MG/50 ML IVPB 20 MG/50 ML MG IVPB ONE ×2 (17:15→18:00)
[2019-03-21] MEDS ORDERED: MAG HYDROX/AL HYDROX/SIMETH 30 ML UNIT-DOSE CUP PO ONE (17:15)
[2019-03-21] MEDS ORDERED: LIDOCAINE VISCOUS 2% ORAL/TOP 20 ML UNIT-DOSE CUP MM ONE (17:16)
--- NOTE | 2019-03-21 17:42 | PDOC ---
Documentation entered by Petra Rinaldi SCRIBE, acting as scribe for Catarino Coulter MD. Catarino Coulter MD: This documentation has been prepared by the jorgeibe, Petra Rinaldi SCRIBE, under my direction and personally reviewed by me in its entirety. I confirm that the documentation accurately reflects all work, treatment, procedures, and medical decision making performed by me. Attending Attestation - Resident Resident Name: Lisa Jameshan - ED Attending Attestation I have performed the following: I have examined & evaluated the patient, The case was reviewed & discussed with the resident, I agree w/resident's findings & plan, Exceptions are as noted - HPI HPI: 03/21/19 17:39 The patient is a 28-year-old female, with a past medical history of GERD and kidney stones, who presents to the ED with 1 month of epigastric pain. The patient describes the pain as intermittent, sharp in sensation, with radiation up to her LT shoulder and down her arm. The pain is unaffected by food. The patient states that the pain is similar to her previous episodes of GERD, but she became concerned with the new onset of LT arm. She also reports SOB when the pain gets bad. The patient has tried simethicone with minimal relief of her symptoms. She reports that she contacted her PCP who advised that she report to the ED for further evaluation. The patient denies fevers, chills, nausea, vomiting, or diarrhea. Denies any chest pain, palpitations. Allergies: Pineapple - Physicial Exam PE: 03/21/19 17:41 GENERAL: Awake, alert, and fully oriented, in no acute distress. HEAD: No signs of trauma EYES: PERRLA, EOMI, sclera anicteric, conjunctiva clear ENT: Auricles normal inspection, hearing grossly normal, nares patent, oropharynx clear without exudates. Moist mucosa NECK: Nontender, no stepoffs, Normal ROM, supple, no lymphadenopathy, JVD, or masses LUNGS: Breath sounds equal, clear to auscultation bilaterally. No wheezes, and no crackles HEART: Regular rate and rhythm, normal S1 and S2, no murmurs, rubs or gallops ABDOMEN: + epigastric TTP, normoactive bowel sounds. No guarding, no rebound. No masses EXTREMITIES: Normal range of motion, no edema. No clubbing or cyanosis. No cords, erythema, or tenderness NEUROLOGICAL: Cranial nerves II through XII intact. 5/5 strength and sensation in all extremities, Normal speech, normal gait, normal cerebellar function SKIN: Warm, Dry, normal turgor, no rashes or lesions noted. - Medical Decision Making 03/21/19 17:53 28 F with epigastric pain radiating up into her L arm. Suspect GERD. Pt with no cardiac risk factors. EKG completely normal. Will also r/o PE as pt is on OCPs and complains of intermittent SOB. - Labs, trop, ddimer - CXR - GI cocktail - CTA if indicated 03/21/19 18:21 Ddimer elevated 1000 Labs otherwise wnl Will obtain CTA chest 03/21/19 17:53 CTA negative for PE or other pathology Pt is well appearing, with normal vitals. Clinically stable for DC at this time. I discussed the physical exam findings, ancillary test results and final diagnoses with the patient. I answered all of the patient's questions. The patient was satisfied with the care received and felt comfortable with the discharge plan and treatment plan. The patient agrees to follow up with the primary care physician within 24-72 hours.
[2019-03-21] MEDS ORDERED: LIDOCAINE VISCOUS 2% ORAL/TOP 20 ML UNIT-DOSE CUP ONE (18:00)
[2019-03-21] MEDS ORDERED: MAG HYDROX/AL HYDROX/SIMETH 30 ML UNIT-DOSE CUP ONE (18:00)
[2019-03-21 20:05] VITALS: BP 124/90; TEMP 98.6
[2019-03-21] MEDS ORDERED: ACETAMINOPHEN 1000 MG/100 ML VIAL (NON FORMULARY) IVPB ONE (20:16)
[2019-03-21] MEDS ORDERED: SODIUM CHLORIDE 0.9% 500 ML INFUS.BAG IV ONE (20:16)
[2019-03-21] MEDS ORDERED: ACETAMINOPHEN INJECTION 100 ML IVPB ONE (21:13)
[2019-03-21 21:58] VITALS: PULSE 76
== END 2019-03-21 22:00 | disposition home or self-care (01) ==
LOC: JER 14:25
DX: K21.9 Gastro-esophageal reflux disease without esophagitis (principal); E78.00 Pure hypercholesterolemia, unspecified; Z87.442 Personal history of urinary calculi
CPT/HCPCS: 36415; 71046-TC-FY; 71275-TC; 80053; 83690; 84484; 84703; 85025; 85379; 93005; 93010; 99284-25; J0131

== ENCOUNTER 2019-09-10 12:31 | Inpatient (IN) | payer OTHER ==
--- NOTE | 2019-09-10 13:12 | PDOC ---
History of Present Illness - General Chief Complaint: Pain, Acute Stated Complaint: ABD PAIN Time Seen by Provider: 09/10/19 13:05 - History of Present Illness Initial Comments: 09/10/19 13:48 HPI: 29 y/o F with hx of recurrent UTIs and kidney stones s/p stents and lithotripsy , GERD, HLD presenting with abdominal pain and right flank pain. Symptoms started yesterday morning around 5am. She felt suprapubic pain that felt like a pressure associated with burning dysuria and hematuria. She went to the urgent care and was prescribed macrobid after UA showed positive UA with hematuria. She states since yesterday the pain has been worsening and now radiaites to the RLQ and right flank and feels like previous kidney stone pain. She also reports chills and nausea but denies emesis. Pain is constant and 8/10 currently. Denies fever, chest pain, SOB. Of note she reports blooding is similar to vaginal bleeding during period and isnt sure if actual hematuria vs early period PMHx: as noted above ROS: as noted SHx: Denies tobacco use; no alcohol use; no rec drugs Allergies: see chart ROS: GENERAL/CONSTITUTIONAL: No fever. No weakness. HEAD, EYES, EARS, NOSE AND THROAT: No change in vision. No ear pain or discharge. No sore throat. CARDIOVASCULAR: No chest pain or shortness of breath RESPIRATORY: No cough, wheezing, or hemoptysis. GASTROINTESTINAL: +nausea; no vomiting, diarrhea or constipation. GENITOURINARY: +dysuria; no frequency, or change in urination. MUSCULOSKELETAL: No joint or muscle swelling or pain. No neck or back pain. SKIN: No rash NEUROLOGIC: No headache, vertigo, loss of consciousness, or change in strength/ sensation. ENDOCRINE: No increased thirst. No abnormal weight change HEMATOLOGIC/LYMPHATIC: No anemia, easy bleeding, or history of blood clots. ALLERGIC/IMMUNOLOGIC: No hives or skin allergy. PE: GENERAL: Awake, alert, and fully oriented, no acute distress HEAD: No signs of trauma, normocephalic, atraumatic EYES: EOMI, sclera anicteric, conjunctiva clear ENT: Auricles normal inspection, hearing grossly normal, nares patent, oropharynx clear without exudates. Moist mucosa NECK: Normal ROM, no lymphadenopathy LUNGS: No increased work of breathing, symmetrical chest rise, clear to auscultation bilaterally, no wheezes, crackles or rhonchi HEART: Regular rate, regular rhythm, normal S1 and S2, no murmur, peripheral pulses 2+ and equal bilaterally. ABDOMEN: Soft, nondistended, surpapubic RLQ RUQ and right flank ttp with RCVAT, normoactive bowel sounds. No masses. MUSCULOSKELETAL: FROM NEUROLOGICAL: Cranial nerves II through XII grossly intact. Normal speech, normal gait, no focal sensorimotor deficits SKIN: Warm, Dry, normal turgor, no rashes or lesions noted Past History - Past Medical History Allergies/Adverse Reactions: Allergies Allergy/AdvReac Type Severity Reaction Status Date / Time pineapple Allergy Difficulty Verified 07/29/17 22:52 Breathing Home Medications: Ambulatory Orders Ibuprofen [Motrin] 600 mg PO TID #30 tablet 07/30/17 Oxycodone HCl/Acetaminophen [Percocet 5-325 mg Tablet] 1 - 2 tab PO Q6H #14 tablet MDD 4 07/30/17 Sulfamethoxazole/Trimethoprim [Bactrim *Ds*] 1 tab PO BID #20 tablet 07/30/17 Albuterol Sulfate Inhaler - [Ventolin HFA Inhaler -] 1 - 2 inh PO Q4H PRN #1 inhaler 05/10/18 Dexamethasone [Decadron -] 10 mg PO ONCE #3 tablet 05/10/18 EPINEPHrine (EPI-PEN 0.3MG) [Epipen 0.3MG -] 0.3 mg IM ASDIR #2 pens 05/10/18 Famotidine [Pepcid] 40 mg PO DAILY #20 tablet 05/10/18 Loratadine [Claritin] 10 mg PO DAILY #20 tablet 05/10/18 Omeprazole 20 mg PO DAILY 14 Days #14 capsule. 03/21/19 COPD: No DVT: No GI Disorders: Yes (Kidney stones) Disorders: Yes (kidney stones) Hypercholesterolemia: Yes - Immunization History Immunization Up to Date: No - Psycho Social/Smoking Cessation Hx Smoking Status: No Smoking History: Never smoked Have you smoked in the past 12 months: No Number of Cigarettes Smoked Daily: 0 Information on smoking cessation initiated: No Hx Alcohol Use: No Drug/Substance Use Hx: No Substance Use Type: None Hx Substance Use Treatment: No *Physical Exam - Vital Signs Last Vital Signs Temp Pulse Resp BP Pulse Ox 98.1 F 71 18 117/75 100 09/10/19 12:40 09/10/19 12:40 09/10/19 12:40 09/10/19 12:40 09/10/19 12:40 ED Treatment Course - LABORATORY CBC & Chemistry Diagram: 09/10/19 13:45 09/10/19 13:45 Medical Decision Making - Medical Decision Making 09/10/19 14:21 29 y/o F with hx of recurrent UTIs and kidney stones s/p stents and lithotripsy , GERD, HLD presenting with abdominal pain and right flank pain associated with dysuria and hematuria; went to UC but symptoms not improved after 1 day of abx. VSS, AF. PE notable for suprapubic, RLQ, right flank ttpa nd RCVAT. DDX includes pyelo, uti, septic stone -cbc, cmp, ua, ucx, upreg -ivf, morphine, ceftriaxone, zofran -ct spiral 09/10/19 16:05 UA concerning for uti remainder labs wnl CT with no obvious stone after review with team; will wait for final read nausea resolved; pain improved but not resolved, will administer 30mg toradol discussed with patient; will plan for DC with keflex qid x14 days and uro followup with dr gutierrez patient agreeable with plan and no all questions answered 09/10/19 17:56 patient requiring additional iv narcotics for pain control following toradol; discussed with patient regarding admission for iv abx and pain control and patient agreeable mbmd pending 09/10/19 18:[address] Hoffman med/surg Discharge - Discharge Information Problems reviewed: Yes Clinical Impression/Diagnosis: Pyelonephritis Condition: Guarded - Follow up/Referral Referrals: Adelaida Moore DO [Primary Care Provider] - Brennan Gutierrez MD [Staff Physician] - - Patient Discharge Instructions Patient Printed Discharge Instructions: DI for Kidney Infection Additional Instructions: Additional Instructions: Please return to the emergency department with any new or worsening symptoms or concerns including fever, worsening pain, worsening vomiting, inability to tolerate diet, inability to urinate. Please follow up with your urologist, Dr Gutierrez, within 72 hours. Please followup with your PCP within 1 week. Please take Keflex 500mg every 6 hours (4x a day) for 14 days. You make take ibuprofen 600mg every 6 hours as needed for pain control as well - Post Discharge Activity
[2019-09-10] MEDS ORDERED: ONDANSETRON 4 MG/2 ML VIAL IVPUSH ONE ×2 (13:27→17:56)
[2019-09-10] MEDS ORDERED: SODIUM CHLORIDE 1,000 ML IV STA (13:27)
[2019-09-10] MEDS ORDERED: ONDANSETRON 4 MG/2 ML VIAL ONE ×2 (13:30→18:47)
[2019-09-10] MEDS ORDERED: ACETAMINOPHEN 1000 MG/100 ML VIAL (NON FORMULARY) IVPB ONE (13:35)
[2019-09-10] MEDS ORDERED: morphine CARPU-JECT 4 MG/1 ML DISP.SYRIN IVPUSH ONE ×2 (13:44→17:56)
[2019-09-10] MEDS ORDERED: morphine SULFATE 4 MG/ML VIAL ONE ×2 (13:53→18:47)
[2019-09-10] MEDS ORDERED: CEFTRIAXONE 1,000 MG in DEXTROSE 5%-WATER - 50 ML IVPB ONE (13:54)
[2019-09-10 14:10] LABS: BASO % 0.8 % (0-2.0); EOS % 1.8 % (0-4.5); EPI CELLS 1.6 /HPF (0-5/HPF); HEMOGLOBIN 13.4 GM/dL (10.7-15.3); HYALINE CASTS 2 /lpf (0-8); LYMPH % 19.3 % (8-40); MCH 31.5 pg (25.7-33.7); MCHC 34.4 g/dl (32.0-36.0); MEAN CELL VOLUME 91.6 fl (80-96); MEAN PLT VOLUME 10.5 fl (7.5-11.1); MONO % 7.1 % (3.8-10.2); PLATELET COUNT 313 K/MM3 (134-434); RBC 4.26 M/mm3 (3.60-5.2); RDW 13.7 % (11.6-15.6); URINE APPEARANCE CLOUDY; URINE BACTERIA 310.1 /hpf (NEGATIVE); URINE BILIRUBIN 1+ (NEGATIVE); URINE COLOR DK YELLOW; URINE GLUCOSE (UA) NEGATIVE (NEGATIVE); URINE KETONE 1+ (NEGATIVE); URINE LEUK ESTERASE 1+ (NEGATIVE); URINE NITRITE POSITIVE (NEGATIVE); URINE PROTEIN 1+ (NEGATIVE); URINE RBC 1109 /hpf (0-4); URINE WBC 27 /hpf (0-5); WHITE BLOOD COUNT 8.7 K/mm3 (4.0-10.0)
--- NOTE | 2019-09-10 14:14 | PDOC ---
Documentation entered by Sophie Oh SCRIBE, acting as scribe for Glenda Lewis DO. Glenda Lewis DO: This documentation has been prepared by the Althea goel Nirvannie, SCRIBE, under my direction and personally reviewed by me in its entirety. I confirm that the documentation accurately reflects all work, treatment, procedures, and medical decision making performed by me. Attending Attestation - Resident Resident Name: Judy Christianson - ED Attending Attestation I have performed the following: I have examined & evaluated the patient, The case was reviewed & discussed with the resident, I agree w/resident's findings & plan, Exceptions are as noted - HPI HPI: 09/10/19 14:02 The patient is a 29 year old female, with a significant past medical history of nephrolithiasis and GERD, who presents to the emergency department with 2 days of dysuria and hematuria with new onset right flank pain. As per patient, she went to urgent care yesterday at which time she was diagnosed with a UTI and prescribed Macrobid. Patient notes today she began to experience sudden onset right flank pain with radiation to the RLQ and right flank, prompting her arrival to the ED. She denies recent fevers, chills, headache or dizziness. She denies recent nausea, vomiting, diarrhea or constipation. She denies recent chest pain or shortness of breath. Allergies: Pineapple Primary Care Physician: Dr. Harris - Physicial Exam PE: 09/10/19 14:02 Constitutional: +Flushed. Awake, alert, oriented. No acute distress. Head: Normocephalic. Atraumatic Eyes: PERRL. EOMI. Conjunctivae are not pale. ENT: Mucous membranes are moist and intact. Posterior pharynx without exudates or erythema. Uvula midline. Neck: Supple. Full ROM. No lymphadenopathy. Cardiovascular: Regular rate. Regular rhythm. S1, S2 regular. Distal pulses are 2+ and symmetric. Pulmonary/Chest: No evidence of respiratory distress. Clear to auscultation bilaterally No wheezing, rales or rhonchi. Abdominal: +Right groin pain. Soft and non-distended. No rebound, guarding or rigidity. No organomegaly. No palpable masses. Good bowel sounds. Back: +Right flank tenderness. Musculoskeletal: No edema. No cyanosis. No clubbing. Full range of motion in all extremities. No calf tenderness. Radial/pedal pulses are intact and 2+ bilaterally Skin: Skin is warm and dry. No petechiae. No purpura. Neurological: Alert and oriented to person, place, and time. Cranial nerves II -XII are grossly intact. Normal speech. Strength is grossly symmetric. No sensory deficits. Psychiatric: Good eye contact. Normal interaction, affect and behavior. - Medical Decision Making 09/10/19 14:07 a/p: 29yo female with R flank pain -dx with uti yesterday at urgent care and started on macrobid -hx of renal colic requiring sx with Dr. Alvarado in November in the past -pt with acute onset of pain today -pt with R cva ttp, R flank pain -pt appears in pain and uncomfortable -will send labs, ua, ucx, ivf hydraiton -bedside ultrasound shows mild-moderate hydronephrosis -will send for ct abd/pelvis to eval of poss infected stone 09/10/19 14:14 ua grossly +, iv abx ordered 09/10/19 14:46 preg neg renal function normal 09/10/19 14:46 no elevated wbc pt to ct 09/10/19 16:33 pt with uti pending ct read if no stone and no pyelo on ct then dc with abx Heart Score/ECG Review - ECG Intrepretation Comment:: 09/10/19 14:07 sinus at 61, nl axis, nl interval, no acute st/t wave findings
[2019-09-10] MEDS ORDERED: CEFTRIAXONE 1 GM/50 ML BAG ONE (14:20)
[2019-09-10 14:29] LABS: ALBUMIN 3.7 g/dl (3.4-5.0); BILIRUBIN,TOTAL 0.4 mg/dL (0.2-1); BLOOD UREA NITROGEN 6.7 mg/dL (7-18); CALCIUM 9.4 mg/dL (8.5-10.1); CREATININE 0.6 mg/dL (0.55-1.3); POTASSIUM 4.6 mmol/L (3.5-5.1); TOT PROT 7.7 g/dl (6.4-8.2)
[2019-09-10] MEDS ORDERED: KETOROLAC TROMETHAMINE 30 MG/1 ML VIAL IVPUSH ONE (16:05)
[2019-09-10] MEDS ORDERED: KETOROLAC TROMETHAMINE 30 MG/1 ML VIAL ONE (16:11)
--- NOTE | 2019-09-10 18:29 | HP ---
CHIEF COMPLAINT: right flank pain PCP: Valente Ruiz MD ([facility]) HISTORY OF PRESENT ILLNESS: Patient is a 29 year old female with a significant past medical history of kidney stones (diagnosed 2012) and s/p stents with lithotripsy in June 2019 , recurrent UTIs, GERD and HLD. She presents to the ED today with right flank pain. Flank pain began yesterday morning and she also felt suprapubic pain that felt like a pressure and also reports burning with urination. Flank pain became severe yesterday, so she went to Urgent Care and was prescribed Macrobid after UA showed +UA with hematuria. She took two doses of the macrobid but the right flank pain is now worse today and now radiates to the right lower quadrant 10/10 and feels like she is passing a kidney stone. She also reports chills and nausea but no vomiting or fevers. She is currently on control pills and reports that she may be having her period presently, however her menstrual cycle is not due until next week. ER course was notable for: (1) abd/ct pending read (2) ua: dark yellow, cloudy, +3 leuks, bacteria 310, urine culture pending (3) Recent Travel: none PAST MEDICAL/SURGICAL HISTORY: kidney stones (diagnosed 2012) and s/p stents with lithotripsy in June 2019, recurrent UTIs, GERD and HLD. Social History: Smoking: none Alcohol: none Drugs: none Allergies pineapple Allergy (Verified 07/29/17 22:52) Difficulty Breathing HOME MEDICATIONS: Home Medications Medication Instructions Recorded Ibuprofen [Motrin] 600 mg PO TID #30 tablet 07/30/17 Oxycodone HCl/Acetaminophen 1 - 2 tab PO Q6H #14 tablet MDD 4 07/30/17 [Percocet 5-325 mg Tablet] Sulfamethoxazole/Trimethoprim 1 tab PO BID #20 tablet 07/30/17 [Bactrim *Ds*] Albuterol Sulfate Inhaler - 1 - 2 inh PO Q4H PRN #1 inhaler 05/10/18 [Ventolin HFA Inhaler -] Dexamethasone [Decadron -] 10 mg PO ONCE #3 tablet 05/10/18 EPINEPHrine (EPI-PEN 0.3MG) 0.3 mg IM ASDIR #2 pens 05/10/18 [Epipen 0.3MG -] Famotidine [Pepcid] 40 mg PO DAILY #20 tablet 05/10/18 Loratadine [Claritin] 10 mg PO DAILY #20 tablet 05/10/18 Omeprazole 20 mg PO DAILY 14 Days #14 03/21/19 capsule. PHYSICAL EXAMINATION Vital Signs - 24 hr 09/10/19 09/10/19 12:40 18:07 Temperature 98.1 F 98.4 F Pulse Rate 71 Pulse Rate [ 59 L Right Brachial] Respiratory 18 17 Rate Blood Pressure 117/75 Blood Pressure 109/59 L [Right Arm] O2 Sat by Pulse 100 97 Oximetry (%) GENERAL: Awake, alert, and fully oriented, in no acute distress. HEAD: Normal with no signs of trauma. EYES: Pupils equal, round and reactive to light, extraocular movements intact, sclera anicteric, conjunctiva clear. No lid lag. EARS, NOSE, THROAT: Ears normal, nares patent, oropharynx clear without exudates. Moist mucous membranes. NECK: Normal range of motion, supple without lymphadenopathy, JVD, or masses. LUNGS: Breath sounds equal, clear to auscultation bilaterally. No wheezes HEART: Regular rate and rhythm ABDOMEN: Soft, nontender, not distended, normoactive bowel sounds, +right flank pain MUSCULOSKELETAL: Normal range of motion at all joints. No bony deformities or tenderness. No CVA tenderness. UPPER EXTREMITIES: No peripheral edema. LOWER EXTREMITIES: 2+ pulses, warm, well-perfused. No calf tenderness. No peripheral edema. NEUROLOGICAL: Normal speech. Normal gait. PSYCHIATRIC: Cooperative. Good eye contact. Appropriate mood and affect. SKIN: Warm, dry, normal turgor, no rashes or lesions noted, normal capillary refill. Laboratory Results - last 24 hr 09/10/19 09/10/19 09/10/19 13:28 13:45 13:45 WBC 8.7 RBC 4.26 Hgb 13.4 Hct 39.0 MCV 91.6 MCH 31.5 MCHC 34.4 RDW 13.7 Plt Count 313 MPV 10.5 Absolute Neuts (auto) 6.2 Neutrophils % 71.0 Lymphocytes % 19.3 Monocytes % 7.1 Eosinophils % 1.8 Basophils % 0.8 Nucleated RBC % 0 Sodium 140 Potassium 4.6 Chloride 108 H Carbon Dioxide 23 Anion Gap 9 BUN 6.7 L Creatinine 0.6 Est GFR (CKD-EPI)AfAm 140.77 Est GFR (CKD-EPI)NonAf 121.46 Random Glucose 82 Calcium 9.4 Total Bilirubin 0.4 AST 36 ALT 30 Alkaline Phosphatase 87 Total Protein 7.7 Albumin 3.7 Urine Color Urine Appearance Urine pH Ur Specific [place] Urine Protein Urine Glucose (UA) Urine Ketones Urine Blood Urine Nitrite Urine Bilirubin Urine Urobilinogen Ur Leukocyte Esterase Urine WBC (Auto) Urine RBC (Auto) Urine Casts (Auto) U Epithel Cells (Auto) Urine Bacteria (Auto) Urine HCG, Qual Negative 09/10/19 13:45 WBC RBC Hgb Hct MCV MCH MCHC RDW Plt Count MPV Absolute Neuts (auto) Neutrophils % Lymphocytes % Monocytes % Eosinophils % Basophils % Nucleated RBC % Sodium Potassium Chloride Carbon Dioxide Anion Gap BUN Creatinine Est GFR (CKD-EPI)AfAm Est GFR (CKD-EPI)NonAf Random Glucose Calcium Total Bilirubin AST ALT Alkaline Phosphatase Total Protein Albumin Urine Color Dk yellow Urine Appearance Cloudy Urine pH 7.0 Ur Specific [place] 1.014 Urine Protein 1+ H Urine Glucose (UA) Negative Urine Ketones 1+ H Urine Blood 3+ H Urine Nitrite Positive H Urine Bilirubin 1+ H Urine Urobilinogen 1.0 Ur Leukocyte Esterase 1+ H Urine WBC (Auto) 27 Urine RBC (Auto) 1109 Urine Casts (Auto) 2 U Epithel Cells (Auto) 1.6 Urine Bacteria (Auto) 310.1 Urine HCG, Qual ASSESSMENT/PLAN: Problem List - Problem (1) Pyelonephritis Assessment/Plan: Patient presents with right flank pain, severe with burning on urination along with pelvic pressure. UA concerning for acute UTI, UC sent and pending abd/pelvic CT (w/o contrast) with no obvious stone after review, pending official read. nausea resolved after administration of toradol but worsened 1 hour after toradol and given morphine for better pain control. given Ceftriaxone 1 gram in the ED Start on NS @ 125cc/hr Code(s): N12 - TUBULO-INTERSTITIAL NEPHRITIS, NOT SPCF ACUTE OR CHRONIC (2) GERD (gastroesophageal reflux disease) Assessment/Plan: on protonix Code(s): K21.9 - GASTRO-ESOPHAGEAL REFLUX DISEASE WITHOUT ESOPHAGITIS Qualifiers: Esophagitis presence: esophagitis presence not specified Qualified Code(s) : K21.9 - Gastro-esophageal reflux disease without esophagitis (3) DVT prophylaxis Assessment/Plan: SCDs and ambulation no a/c 2/2 to hematuria Code(s): [id number] - Visit type - Emergency Visit Emergency Visit: Yes ED Registration Date: 09/10/19 Care time: The patient presented to the Emergency Department on the above date and was hospitalized for further evaluation of their emergent condition. - New Patient This patient is new to me today: No - Critical Care Critical Care patient: No
[2019-09-10] MEDS ORDERED: MORPHINE SULFATE 2 MG/ML VIAL IVPUSH PRN (18:39)
[2019-09-10] MEDS ORDERED: ALBUTEROL SO4 2.5/IPRATROPIUM 0.5 INH SOL 3 ML VIAL.NEB. NEB PRN (18:43)
[2019-09-10] MEDS: SODIUM CHLORIDE 1,000 ML IV SCH ×2 (18:44→21:17)
[2019-09-10] MEDS ORDERED: ACETAMINOPHEN 325 MG TABLET (FP) PO PRN (18:48)
[2019-09-10 19:54] VITALS: BMI 27.1
[2019-09-10] MEDS: KETOROLAC TROMETHAMINE 15 MG/ML VIAL IVPUSH PRN (20:37)
[2019-09-11 00:17] LABS: ALBUMIN 2.9 g/dl (3.4-5.0); BILIRUBIN,TOTAL 0.2 mg/dL (0.2-1); BLOOD UREA NITROGEN 11.2 mg/dL (7-18); CALCIUM 8.5 mg/dL (8.5-10.1); CREATININE 0.6 mg/dL (0.55-1.3); MAGNESIUM 2.2 mg/dL (1.8-2.4); POTASSIUM 3.9 mmol/L (3.5-5.1); TOT PROT 6.2 g/dl (6.4-8.2)
[2019-09-11 00:21] LABS: BASO % 0.6 % (0-2.0); EOS % 2.7 % (0-4.5); HEMATOCRIT 35.2 % (32.4-45.2); HEMOGLOBIN 11.8 GM/dL (10.7-15.3); LYMPH % 30.9 % (8-40); MCH 30.9 pg (25.7-33.7); MCHC 33.6 g/dl (32.0-36.0); MEAN CELL VOLUME 91.9 fl (80-96); MONO % 8.2 % (3.8-10.2); NEUT % 57.6 % (42.8-82.8); PLATELET COUNT 261 K/MM3 (134-434); RBC 3.83 M/mm3 (3.60-5.2); RDW 13.6 % (11.6-15.6); WHITE BLOOD COUNT 7.6 K/mm3 (4.0-10.0)
[2019-09-11] MEDS: SODIUM CHLORIDE 1,000 ML IV SCH ×3 (05:25→22:29)
[2019-09-11] MEDS: KETOROLAC TROMETHAMINE 15 MG/ML VIAL IVPUSH PRN ×3 (07:01→20:11)
[2019-09-11 08:48] LABS: PH,URINE 5.5 (5.0-8.0); URINE APPEARANCE Clear; URINE BILIRUBIN Negative (NEGATIVE); URINE COLOR Yellow; URINE GLUCOSE (UA) Negative (NEGATIVE); URINE KETONE Trace (NEGATIVE); URINE LEUK ESTERASE 1+ (NEGATIVE); URINE NITRITE Negative (NEGATIVE); URINE PROTEIN Negative (NEGATIVE); URINE UROBILINOGEN 0.2 mg/dL (0.2-1.0)
[2019-09-11] MEDS ORDERED: cefTRIAXone SODIUM 1 GM VIAL ONE (08:59)
[2019-09-11] MEDS ORDERED: DEXTROSE 5%-WATER - 50 ML IVPB ONE (08:59)
[2019-09-11] MEDS: PANTOPRAZOLE 40 MG TABLET PO SCH (09:14)
[2019-09-11] MEDS: CEFTRIAXONE 1 GM in DEXTROSE 5%-WATER - 50 ML IVPB SCH (09:14)
[2019-09-11 09:49] LABS: URINE RBC 1.8 /hpf (0-4)
[2019-09-11 09:50] LABS: EPI CELLS 10.5 /HPF (0-5/HPF); HYALINE CASTS 15.25 /lpf (0-8); URINE BACTERIA 6.9 /hpf (NEGATIVE); URINE WBC 34.8 /hpf (0-5)
[2019-09-11] MEDS ORDERED: PT OWN MED DRAWER 7, Y5N ONE (10:10)
--- NOTE | 2019-09-11 12:36 | EKG ---
Test Reason : Blood Pressure : / mmHG Vent. Rate : 061 BPM Atrial Rate : 061 BPM P-R Int : 156 ms QRS Dur : 074 ms QT Int : 434 ms P-R-T Axes : 022 029 025 degrees QTc Int : 436 ms NORMAL SINUS RHYTHM NORMAL ECG WHEN COMPARED WITH ECG OF 21-MAR-2019 14:32, NO SIGNIFICANT CHANGE WAS FOUND Confirmed by SUE PERERA MD ([id number]) on 09/11/2019 12:36:09 PM Referred By: Confirmed By:SUE PERERA MD
--- NOTE | 2019-09-11 15:52 | PN ---
Physical Exam: SUBJECTIVE: Patient seen and examined at the bedside. reports right sided flank pain that was severe overnight, some relief with toradol. does not want to take morphine as it made her feel dizzy. Also reports some pelvic pressure and burning with urination. She feels as though she is passing a kidney stone as pain is severe. OBJECTIVE: Patient is a 29 year old female with a significant past medical history of kidney stones (diagnosed 2012) and s/p stents with lithotripsy in June 2019 , recurrent UTIs, GERD and HLD. She presents to the ED on 09/10/2019 with right flank pain and hematuria. She was seen as an outpatient and placed on macrobid with urology follow up however, flank pain became severe and presented to [facility] Ed for further management. imaging: abd/ct pelvis 09/10/2019: No acute pathology, no urinary calculi seen. unable to rule out pyeloneprhitis with non image study. Period Temp Pulse Resp BP Sys/Renner Pulse Ox Last 24 Hr 98.0 F-98.4 F 52-79 16-20 90-112/52-72 97-99 GENERAL: Awake, alert, and fully oriented, in no acute distress. HEAD: Normal with no signs of trauma. EYES: Pupils equal, round and reactive to light, extraocular movements intact, sclera anicteric, conjunctiva clear. No lid lag. EARS, NOSE, THROAT: Ears normal, nares patent, oropharynx clear without exudates. Moist mucous membranes. NECK: Normal range of motion, supple without lymphadenopathy, JVD, or masses. LUNGS: Breath sounds equal, clear to auscultation bilaterally. No wheezes HEART: Regular rate and rhythm ABDOMEN: Soft, nontender, not distended, normoactive bowel sounds, +right flank pain MUSCULOSKELETAL: Normal range of motion at all joints. No bony deformities or tenderness. No CVA tenderness. UPPER EXTREMITIES: No peripheral edema. LOWER EXTREMITIES: 2+ pulses, warm, well-perfused. No calf tenderness. No peripheral edema. NEUROLOGICAL: Normal speech. Normal gait. PSYCHIATRIC: Cooperative. Good eye contact. Appropriate mood and affect. SKIN: Warm, dry, normal turgor, no rashes or lesions noted, normal capillary refill. Laboratory Results - last 24 hr 09/10/19 09/11/19 09/11/19 23:35 00:05 06:50 WBC 7.6 RBC 3.83 Hgb 11.8 Hct 35.2 MCV 91.9 MCH 30.9 MCHC 33.6 RDW 13.6 Plt Count 261 MPV 10.0 Absolute Neuts (auto) 4.4 Neutrophils % 57.6 Lymphocytes % 30.9 D Monocytes % 8.2 Eosinophils % 2.7 Basophils % 0.6 Nucleated RBC % 0 Sodium 142 Potassium 3.9 Chloride 113 H Carbon Dioxide 24 Anion Gap 4 L BUN 11.2 Creatinine 0.6 Est GFR (CKD-EPI)AfAm 140.77 Est GFR (CKD-EPI)NonAf 121.46 Random Glucose 95 Calcium 8.5 Magnesium 2.2 Total Bilirubin 0.2 AST 19 ALT 22 Alkaline Phosphatase 70 Total Protein 6.2 L Albumin 2.9 L Urine Color Yellow Urine Appearance Clear Urine pH 5.5 D Ur Specific [place] >= 1.030 Urine Protein Negative Urine Glucose (UA) Negative Urine Ketones Trace Urine Blood 2+ H Urine Nitrite Negative Urine Bilirubin Negative Urine Urobilinogen 0.2 Ur Leukocyte Esterase 1+ H Urine WBC (Auto) 34.8 Urine RBC (Auto) 1.8 Urine Casts (Auto) 15.25 U Epithel Cells (Auto) 10.5 U Sm Round Cell (Auto) None seen Urine Bacteria (Auto) 6.9 Active Medications Generic Name Dose Route Start Last Admin Trade Name Freq PRN Reason Stop Dose Admin Acetaminophen 650 mg 09/10/19 18:48 Tylenol - PO Q6H PRN HEADACHE Albuterol/Ipratropium 1 amp 09/10/19 18:43 Duoneb - NEB RTID PRN SHORTNESS OF BREATH Sodium Chloride 1,000 mls @ 125 mls/hr 09/10/19 18:45 09/11/19 05:25 Normal Saline - IV 125 mls/hr ASDIR TAZ Administration Ceftriaxone Sodium 1 gm/ 50 mls @ 200 mls/hr 09/11/19 10:00 09/11/19 09:14 Dextrose IVPB 200 mls/hr DAILY TAZ Administration Protocol Ketorolac Tromethamine 15 mg 09/10/19 18:39 09/11/19 13:33 Toradol Injection - IVPUSH 09/15/19 18:38 15 mg Q6H PRN Administration PAIN LEVEL 4 - 6 Morphine Sulfate 2 mg 09/10/19 18:39 Morphine Sulfate IVPUSH Q6H PRN PAIN LEVEL 7 - 10 Pantoprazole Sodium 40 mg 09/11/19 10:00 09/11/19 09:14 Protonix - PO 40 mg DAILY TAZ Administration ASSESSMENT/PLAN: Problem List - Problems (1) Pyelonephritis Assessment/Plan: Patient presents with right flank pain, severe with burning on urination along with pelvic pressure. right flank pain, pelvic pressure and burning with urination persists. ua: dark yellow, cloudy, +3 leuks, bacteria 310, urine culture with no growth. abd/pelvic CT (w/o contrast) with no obvious stone after review, no pyelnonephritis seen but unable to fully rule out on a non contrast image. pain controlled with toradol IV continue ceftriaxone IV and NS 125/cc/hr awaiting on urology further recommendations prior to d/c home Code(s): N12 - TUBULO-INTERSTITIAL NEPHRITIS, NOT SPCF ACUTE OR CHRONIC (2) GERD (gastroesophageal reflux disease) Assessment/Plan: on protonix Code(s): K21.9 - GASTRO-ESOPHAGEAL REFLUX DISEASE WITHOUT ESOPHAGITIS Qualifiers: Esophagitis presence: esophagitis presence not specified Qualified Code(s) : K21.9 - Gastro-esophageal reflux disease without esophagitis (3) DVT prophylaxis Assessment/Plan: SCDs and ambulation no a/c 2/2 to hematuria Code(s): HBO8290 - Visit type - Emergency Visit Emergency Visit: Yes ED Registration Date: 09/10/19 Care time: The patient presented to the Emergency Department on the above date and was hospitalized for further evaluation of their emergent condition. - New Patient This patient is new to me today: No - Critical Care Critical Care patient: No - Discharge Referral Referred to [facility] Med P.C.: No
[2019-09-12] MEDS: KETOROLAC TROMETHAMINE 15 MG/ML VIAL IVPUSH PRN ×3 (05:25→21:23)
[2019-09-12] MEDS: SODIUM CHLORIDE 1,000 ML IV SCH ×2 (06:36→21:41)
[2019-09-12 07:57] LABS: BASO % 0.7 % (0-2.0); EOS % 2.8 % (0-4.5); HEMATOCRIT 34.4 % (32.4-45.2); HEMOGLOBIN 11.6 GM/dL (10.7-15.3); LYMPH % 29.1 % (8-40); MCH 30.8 pg (25.7-33.7); MCHC 33.7 g/dl (32.0-36.0); MEAN CELL VOLUME 91.3 fl (80-96); MONO % 7.4 % (3.8-10.2); PLATELET COUNT 266 K/MM3 (134-434); RBC 3.77 M/mm3 (3.60-5.2); RDW 13.4 % (11.6-15.6); WHITE BLOOD COUNT 6.1 K/mm3 (4.0-10.0)
[2019-09-12 08:20] LABS: BILIRUBIN,TOTAL 0.3 mg/dL (0.2-1); BLOOD UREA NITROGEN 8.4 mg/dL (7-18); CALCIUM 8.9 mg/dL (8.5-10.1); CREATININE 0.5 mg/dL (0.55-1.3); MAGNESIUM 2.2 mg/dL (1.8-2.4); POTASSIUM 4.2 mmol/L (3.5-5.1); TOT PROT 6.3 g/dl (6.4-8.2)
--- NOTE | 2019-09-12 08:37 | PN ---
Progress Note, Physician Chief Complaint: c/o persistent right flank and lower back pain. No c/o hematuria. History of Present Illness: Patient is a 29 year old female with a significant past medical history of kidney stones (diagnosed 2012) and s/p stents with lithotripsy in June 2019 , recurrent UTIs, GERD and HLD. She presents to the ED on 09/10/2019 with right flank pain and hematuria. She was seen as an outpatient and placed on macrobid with urology follow up however, flank pain became severe and presented to [facility] Ed for further management. - Current Medication List Current Medications: Active Medications Acetaminophen (Tylenol -) 650 mg PO Q6H PRN PRN Reason: HEADACHE Albuterol/Ipratropium (Duoneb -) 1 amp NEB RTID PRN PRN Reason: SHORTNESS OF BREATH Sodium Chloride (Normal Saline -) 1,000 mls @ 125 mls/hr IV ASDIR TAZ Last Admin: 09/12/19 06:36 Dose: 125 mls/hr Ceftriaxone Sodium 1 gm/ (Dextrose) 50 mls @ 200 mls/hr IVPB DAILY [facility]; Protocol Last Admin: 09/11/19 09:14 Dose: 200 mls/hr Ketorolac Tromethamine (Toradol Injection -) 15 mg IVPUSH Q6H PRN PRN Reason: PAIN LEVEL 7 - 10 Stop: 09/15/19 18:38 Last Admin: 09/12/19 05:25 Dose: 15 mg Pantoprazole Sodium (Protonix -) 40 mg PO DAILY [facility] Last Admin: 09/11/19 09:14 Dose: 40 mg - Objective Vital Signs: Vital Signs Temperature 98.6 F 09/12/19 07:16 Pulse Rate 68 09/12/19 07:16 Respiratory Rate 09/12/19 07:16 Blood Pressure 116/68 09/12/19 07:16 O2 Sat by Pulse Oximetry (%) 99 09/10/19 19:55 Constitutional: Yes: Well Nourished, No Distress, Calm Eyes: Yes: WNL, Conjunctiva Clear HENT: Yes: WNL, Atraumatic, Normocephalic Neck: Yes: WNL, Supple, Trachea Midline Cardiovascular: Yes: WNL, Regular Rate and Rhythm Respiratory: Yes: WNL, Regular, CTA Bilaterally Gastrointestinal: Yes: WNL, Normal Bowel Sounds ...Rectal Exam: Yes: Deferred Genitourinary: Yes: CVA Tenderness - Right, Menses Present Breast(s): Yes: WNL Musculoskeletal: Yes: Back Pain (right lower back pain) Extremities: Yes: WNL Edema: No Peripheral Pulses WNL: Yes Peripheral Pulses: Left Radial: 2+, Right Radial: 2+, Left Doralis Pedis: 2+, Right Dorsalis Pedis: 2+, Left Femoral: 2+, Right Femoral: 2+ Integumentary: Yes: WNL Neurological: Yes: WNL, Alert, Oriented ...Motor Strength: WNL Psychiatric: Yes: WNL Labs: CBC, BMP 09/12/19 07:30 09/12/19 07:30 - ....Imaging Cat Scan: Report Reviewed (imaging: abd/ct pelvis 09/10/2019: No acute pathology , no urinary calculi seen. unable to rule out pyeloneprhitis with non image study) Problem List - Problems (1) Back pain Assessment/Plan: encourage ambulation and OOB ketorolac prn Code(s): M54.9 - DORSALGIA, UNSPECIFIED (2) Prophylactic measure Assessment/Plan: FEN Fluids: adequate PO intake, c/w IVF for additional hydration Electrolytes: monitor & replete as needed Nutrition: regular diet DVT early ambulation Dispo Maintain as inpatient full code discharge planning to home Code(s): Z29.9 - ENCOUNTER FOR PROPHYLACTIC MEASURES, UNSPECIFIED (3) Pyelonephritis Assessment/Plan: following c/w IVF, ceftriaxone, and toradol prn will need stone w/u with removal of stent which can be done as outpatient if pain resolves with PO analgesia can be dc to home with follow up with Dr Alvarado Code(s): N12 - TUBULO-INTERSTITIAL NEPHRITIS, NOT SPCF ACUTE OR CHRONIC (4) GERD (gastroesophageal reflux disease) Assessment/Plan: c/w protonix Code(s): K21.9 - GASTRO-ESOPHAGEAL REFLUX DISEASE WITHOUT ESOPHAGITIS Qualifiers: Esophagitis presence: esophagitis presence not specified Qualified Code(s) : K21.9 - Gastro-esophageal reflux disease without esophagitis Visit type - Emergency Visit Emergency Visit: Yes ED Registration Date: 09/10/19 Care time: The patient presented to the Emergency Department on the above date and was hospitalized for further evaluation of their emergent condition. - New Patient This patient is new to me today: Yes Date on this admission: 09/12/19 - Critical Care Critical Care patient: No - Discharge Referral Referred to [facility] Med P.C.: No
[2019-09-12] MEDS ORDERED: DEXTROSE 5%-WATER - 50 ML IVPB ONE (10:56)
[2019-09-12] MEDS ORDERED: cefTRIAXone SODIUM 1 GM VIAL ONE (10:56)
[2019-09-12] MEDS: PANTOPRAZOLE 40 MG TABLET PO SCH (10:58)
[2019-09-12] MEDS: CEFTRIAXONE 1 GM in DEXTROSE 5%-WATER - 50 ML IVPB SCH (10:58)
--- NOTE | 2019-09-12 11:29 | CONS ---
DATE OF CONSULTATION: DATE OF DICTATION: 09/11/2019 HISTORY: Patient is a 29-year-old female admitted via the emergency room yesterday with suprapubic pain and dysuria as well as frequency. She does have history of recurrent urinary tract infections as well as bilateral nephrolithiasis. She is status post a stent placement after undergoing laser lithotripsy. She does have dyslipidemia as well as gastroesophageal reflux disease. Patient is complaining of dysuria and hematuria. She was prescribed Macrobid, but the pain worsened, and the right flank pain became more severe. She also reported chills, fever, and nausea. She denies ethanol or tobacco use. Her abdomen was soft. There was suprapubic tenderness. There was right CVA tenderness. ALLERGIES: She is allergic to PINEAPPLE. MEDICATIONS: She is on multiple medications including Motrin, Percocet, Bactrim, Ventolin inhaler, Decadron, Pepcid, Claritin, and a PPI. In the emergency room, she was afebrile. Her blood pressure was 117/75. Her white count was 8.7, BUN 6.7, creatinine 0.6. The patient had a CT scan without contrast, and this did not reveal upper tract obstruction or stones. DIAGNOSIS: Due to the severe nausea and severity of the pain, the patient is admitted with a diagnosis of pyelonephritis. Patient's urine culture is negative for growth. Her latest white count is 7.6, and her latest BUN 11, creatinine 0.6. Her urine still reveals a large amount of blood. Her nitrites were positive yesterday and negative today. PLAN: We will recommend treating with IV fluids, antibiotics, and analgesia. Patient will need a stone workup as well as removal of a stent. This can be done as an outpatient. We will follow in office. Rashi [id number]
--- NOTE | 2019-09-12 23:01 | PN ---
DATE OF DICTATION: 09/12/2019 HISTORY OF PRESENT ILLNESS: The patient is a 29-year-old female with history of recurrent nephrolithiasis admitted here with right pyelonephritis and colicky renal pain. She has undergone a laser lithotripsy last year. She also has history of recurrent UTIs with fever and chills. She presented to the emergency room on September 10 with gross hematuria as well as elevated temperatures. Presently the patient is afebrile. She has been on ceftriaxone for the past 72 hours. Her T-max is 98.7, blood pressure 116/68. Her latest white count is 6.1, hemoglobin and hematocrit are 11.6 over 34.4, BUN and creatinine are 8.4 over 0.5. The patient's urine culture grew out zero. IMPRESSION: Recurrent upper urinary tract infection, must rule out right renal pathology, rule out vesicle ureteral reflux. Patient will be scheduled in a.m. for cystoscopy. Right retrograde pyelogram and a voiding cystourethrogram. Patient wanted this done prior to discharge due to family reasons. Rashi [id number]
[2019-09-13 08:01] LABS: BASO % 0.4 % (0-2.0); EOS % 3.3 % (0-4.5); HEMATOCRIT 35.2 % (32.4-45.2); HEMOGLOBIN 11.9 GM/dL (10.7-15.3); LYMPH % 11.2 % (8-40); MCHC 33.9 g/dl (32.0-36.0); MEAN CELL VOLUME 91.3 fl (80-96); MEAN PLT VOLUME 9.9 fl (7.5-11.1); MONO % 5.6 % (3.8-10.2); NEUT % 79.5 % (42.8-82.8); PLATELET COUNT 253 K/MM3 (134-434); RBC 3.85 M/mm3 (3.60-5.2); RDW 13.7 % (11.6-15.6); WHITE BLOOD COUNT 7.7 K/mm3 (4.0-10.0)
[2019-09-13 08:36] LABS: ALBUMIN 3.1 g/dl (3.4-5.0); BILIRUBIN,TOTAL 0.8 mg/dL (0.2-1); BLOOD UREA NITROGEN 10.1 mg/dL (7-18); CALCIUM 8.8 mg/dL (8.5-10.1); CREATININE 0.6 mg/dL (0.55-1.3); MAGNESIUM 2.3 mg/dL (1.8-2.4); POTASSIUM 4.1 mmol/L (3.5-5.1); TOT PROT 6.5 g/dl (6.4-8.2)
[2019-09-13] MEDS ORDERED: cefTRIAXone SODIUM 1 GM VIAL ONE (09:28)
[2019-09-13] MEDS ORDERED: PT OWN MED DRAWER 7, Y5N ONE (09:28)
[2019-09-13] MEDS ORDERED: DEXTROSE 5%-WATER - 50 ML IVPB ONE (09:29)
[2019-09-13] MEDS: PANTOPRAZOLE 40 MG TABLET PO SCH ×2 (09:42→10:36)
[2019-09-13] MEDS: CEFTRIAXONE 1 GM in DEXTROSE 5%-WATER - 50 ML IVPB SCH (09:42)
[2019-09-13] MEDS: LIDOCAINE 5% TOPICAL PATCH TP SCH (10:31)
[2019-09-13] MEDS: KETOROLAC TROMETHAMINE 10 MG TABLET PO PRN ×2 (10:35→18:11)
--- NOTE | 2019-09-13 13:32 | PN ---
Physical Exam: SUBJECTIVE: Patient seen and examined at the bedside. reports right sided flank pain is improving. OBJECTIVE: Patient is a 29 year old female with a significant past medical history of kidney stones (diagnosed 2012) and s/p stents with lithotripsy in June 2019 , recurrent UTIs, GERD and HLD. She presents to the ED on 09/10/2019 with right flank pain and hematuria. She was seen as an outpatient and placed on macrobid with urology follow up however, flank pain became severe and presented to [facility] Ed for further management. imaging: abd/ct pelvis 09/10/2019: No acute pathology, no urinary calculi seen. unable to rule out pyeloneprhitis with non image study. Vital Signs Period Temp Pulse Resp BP Sys/Renner Pulse Ox Last 24 Hr 97.9 F-98.8 F 65-82 20-20 98-136/62-84 GENERAL: Awake, alert, and fully oriented, in no acute distress. HEAD: Normal with no signs of trauma. EYES: Pupils equal, round and reactive to light, extraocular movements intact, sclera anicteric, conjunctiva clear. No lid lag. EARS, NOSE, THROAT: Ears normal, nares patent, oropharynx clear without exudates. Moist mucous membranes. NECK: Normal range of motion, supple without lymphadenopathy, JVD, or masses. LUNGS: Breath sounds equal, clear to auscultation bilaterally. No wheezes HEART: Regular rate and rhythm ABDOMEN: Soft, nontender, not distended, normoactive bowel sounds, +right flank pain MUSCULOSKELETAL: Normal range of motion at all joints. No bony deformities or tenderness. No CVA tenderness. UPPER EXTREMITIES: No peripheral edema. LOWER EXTREMITIES: 2+ pulses, warm, well-perfused. No calf tenderness. No peripheral edema. NEUROLOGICAL: Normal speech. Normal gait. PSYCHIATRIC: Cooperative. Good eye contact. Appropriate mood and affect. SKIN: Warm, dry, normal turgor, no rashes or lesions noted, normal capillary refill. Laboratory Results - last 24 hr 09/13/19 09/13/19 07:14 07:14 WBC 7.7 RBC 3.85 Hgb 11.9 Hct 35.2 MCV 91.3 MCH 31.0 MCHC 33.9 RDW 13.7 Plt Count 253 MPV 9.9 Absolute Neuts (auto) 6.1 Neutrophils % 79.5 D Lymphocytes % 11.2 D Monocytes % 5.6 Eosinophils % 3.3 Basophils % 0.4 Nucleated RBC % 0 Sodium 141 Potassium 4.1 Chloride 108 H Carbon Dioxide 26 Anion Gap 7 L BUN 10.1 Creatinine 0.6 Est GFR (CKD-EPI)AfAm 140.77 Est GFR (CKD-EPI)NonAf 121.46 Random Glucose 85 Calcium 8.8 Magnesium 2.3 Total Bilirubin 0.8 AST 14 L ALT 21 Alkaline Phosphatase 78 Total Protein 6.5 Albumin 3.1 L Active Medications Generic Name Dose Route Start Last Admin Trade Name Freq PRN Reason Stop Dose Admin Acetaminophen 650 mg 09/10/19 18:48 Tylenol - PO Q6H PRN HEADACHE Albuterol/Ipratropium 1 amp 09/10/19 18:43 Duoneb - NEB RTID PRN SHORTNESS OF BREATH Sodium Chloride 1,000 mls @ 125 mls/hr 09/10/19 18:45 09/12/19 21:41 Normal Saline - IV 125 mls/hr ASDIR TAZ Administration Ceftriaxone Sodium 1 gm/ 50 mls @ 200 mls/hr 09/11/19 10:00 09/13/19 09:42 Dextrose IVPB 200 mls/hr DAILY TAZ Administration Protocol Ketorolac Tromethamine 10 mg 09/13/19 07:13 09/13/19 10:35 Toradol PO 09/18/19 11:59 10 mg Q6HPO PRN Administration PAIN LEVEL 7 - 10 Lidocaine 1 patch 09/13/19 10:00 09/13/19 10:31 Lidoderm Patch - TP 1 patch DAILY TAZ Administration Miscellaneous 1 each 09/13/19 22:00 Lidoderm Patch Removal DAILY@2200 TAZ Pantoprazole Sodium 40 mg 09/11/19 10:00 09/13/19 10:36 Protonix - PO 40 mg DAILY TAZ Administration ASSESSMENT/PLAN: Problem List - Problems (1) Pyelonephritis Assessment/Plan: Patient presents with right flank pain, severe with burning on urination along with pelvic pressure. right flank pain, pelvic pressure and burning with urination improving pain controlled with toradol po and lidoderm patch continue ceftriaxone IV and NS 125/cc/hr for a cystoscopy tomorrow, then can be d/c with outpatient f/u Code(s): N12 - TUBULO-INTERSTITIAL NEPHRITIS, NOT SPCF ACUTE OR CHRONIC (2) GERD (gastroesophageal reflux disease) Assessment/Plan: on protonix Code(s): K21.9 - GASTRO-ESOPHAGEAL REFLUX DISEASE WITHOUT ESOPHAGITIS Qualifiers: Esophagitis presence: esophagitis presence not specified Qualified Code(s) : K21.9 - Gastro-esophageal reflux disease without esophagitis (3) DVT prophylaxis Assessment/Plan: SCDs and ambulation no a/c 2/2 to hematuria Code(s): GOT6644 - Visit type - Emergency Visit Emergency Visit: Yes ED Registration Date: 09/10/19 Care time: The patient presented to the Emergency Department on the above date and was hospitalized for further evaluation of their emergent condition. - New Patient This patient is new to me today: No - Critical Care Critical Care patient: No - Discharge Referral Referred to [facility] Med P.C.: No
[2019-09-13] MEDS: SODIUM CHLORIDE 1,000 ML IV SCH (15:45)
[2019-09-13] MEDS: LIDOCAINE PATCH REMOVAL MC SCH (22:00)
--- NOTE | 2019-09-14 08:32 | PN ---
Progress Note, Physician Chief Complaint: Flank pain persists. Pending cyctoscopy with Dr Alvarado History of Present Illness: Patient is a 29 year old female with a significant past medical history of kidney stones (diagnosed 2012) and s/p stents with lithotripsy in June 2019 , recurrent UTIs, GERD and HLD. She presents to the ED on 09/10/2019 with right flank pain and hematuria. She was seen as an outpatient and placed on macrobid with urology follow up however, flank pain became severe and presented to [facility] Ed for further management. - Current Medication List Current Medications: Active Medications Acetaminophen (Tylenol -) 650 mg PO Q6H PRN PRN Reason: HEADACHE Albuterol/Ipratropium (Duoneb -) 1 amp NEB RTID PRN PRN Reason: SHORTNESS OF BREATH Sodium Chloride (Normal Saline -) 1,000 mls @ 125 mls/hr IV ASDIR [facility] Last Admin: 09/13/19 15:45 Dose: 125 mls/hr Ceftriaxone Sodium 1 gm/ (Dextrose) 50 mls @ 200 mls/hr IVPB DAILY [facility]; Protocol Last Admin: 09/13/19 09:42 Dose: 200 mls/hr Ketorolac Tromethamine (Toradol) 10 mg PO Q6HPO PRN PRN Reason: PAIN LEVEL 7 - 10 Stop: 09/18/19 11:59 Last Admin: 09/13/19 18:11 Dose: 10 mg Lidocaine (Lidoderm Patch -) 1 patch TP DAILY [facility] Last Admin: 09/13/19 10:31 Dose: 1 patch Miscellaneous (Lidoderm Patch Removal) 1 each MC DAILY@2200 [facility] Last Admin: 09/13/19 22:00 Dose: Not Given Pantoprazole Sodium (Protonix -) 40 mg PO DAILY [facility] Last Admin: 09/13/19 10:36 Dose: 40 mg - Objective Vital Signs: Vital Signs Temperature 98.2 F 09/14/19 06:22 Pulse Rate 62 09/14/19 06:22 Respiratory Rate 09/14/19 06:22 Blood Pressure 115/66 09/14/19 06:22 O2 Sat by Pulse Oximetry (%) 99 09/10/19 19:55 Problem List - Problems (1) Back pain Assessment/Plan: encourage ambulation and OOB ketorolac prn Code(s): M54.9 - DORSALGIA, UNSPECIFIED (2) Prophylactic measure Assessment/Plan: FEN Fluids: adequate PO intake, c/w IVF for additional hydration Electrolytes: monitor & replete as needed Nutrition: regular diet DVT early ambulation Dispo Maintain as inpatient full code discharge planning to home Code(s): Z29.9 - ENCOUNTER FOR PROPHYLACTIC MEASURES, UNSPECIFIED (3) Pyelonephritis Assessment/Plan: s/p rt. hydro, cystitis and trabeculated bladder following c/w IVF, ceftriaxone, and toradol prn Code(s): N12 - TUBULO-INTERSTITIAL NEPHRITIS, NOT SPCF ACUTE OR CHRONIC (4) GERD (gastroesophageal reflux disease) Assessment/Plan: c/w protonix Code(s): K21.9 - GASTRO-ESOPHAGEAL REFLUX DISEASE WITHOUT ESOPHAGITIS Qualifiers: Esophagitis presence: esophagitis presence not specified Qualified Code(s) : K21.9 - Gastro-esophageal reflux disease without esophagitis Visit type - Emergency Visit Emergency Visit: Yes ED Registration Date: 09/10/19 Care time: The patient presented to the Emergency Department on the above date and was hospitalized for further evaluation of their emergent condition. - New Patient This patient is new to me today: No - Critical Care Critical Care patient: No - Discharge Referral Referred to [facility] Med P.C.: No
[2019-09-14 08:39] LABS: BASO % 0.7 % (0-2.0); HEMATOCRIT 37.9 % (32.4-45.2); HEMOGLOBIN 12.8 GM/dL (10.7-15.3); LYMPH % 25.1 % (8-40); MCH 31.1 pg (25.7-33.7); MCHC 33.9 g/dl (32.0-36.0); MEAN CELL VOLUME 91.8 fl (80-96); MEAN PLT VOLUME 9.9 fl (7.5-11.1); MONO % 10.2 % (3.8-10.2); PLATELET COUNT 288 K/MM3 (134-434); RBC 4.13 M/mm3 (3.60-5.2); RDW 13.6 % (11.6-15.6); WHITE BLOOD COUNT 7.2 K/mm3 (4.0-10.0)
[2019-09-14 09:02] LABS: ALBUMIN 3.4 g/dl (3.4-5.0); BILIRUBIN,TOTAL 0.5 mg/dL (0.2-1); BLOOD UREA NITROGEN 7.5 mg/dL (7-18); CALCIUM 9.3 mg/dL (8.5-10.1); CREATININE 0.6 mg/dL (0.55-1.3); POTASSIUM 4.6 mmol/L (3.5-5.1); TOT PROT 7.2 g/dl (6.4-8.2)
--- NOTE | 2019-09-14 09:24 | PN ---
DATE OF DICTATION: 09/13/2019 Patient is a 29-year-old female with recurrent urinary tract infections, dysuria, hematuria and right flank pain. The patient will undergo a cystoscopy and a right retrograde pyelogram in the morning. Will keep n.p.o. Rashi [id number]
[2019-09-14] MEDS ORDERED: DEXTROSE 5%-WATER - 50 ML IVPB ONE (09:37)
[2019-09-14] MEDS ORDERED: cefTRIAXone SODIUM 1 GM VIAL ONE (09:37)
[2019-09-14] MEDS: LIDOCAINE 5% TOPICAL PATCH TP SCH (09:45)
[2019-09-14] MEDS: CEFTRIAXONE 1 GM in DEXTROSE 5%-WATER - 50 ML IVPB SCH (09:45)
[2019-09-14] MEDS: PANTOPRAZOLE 40 MG TABLET PO SCH (09:45)
[2019-09-14] MEDS ORDERED: MIDAZOLAM HCL 2 MG/2 ML SINGLE DOSE VIAL ONE (13:09)
[2019-09-14] MEDS ORDERED: PROPOFOL 20 ML ONE (13:09)
[2019-09-14] MEDS ORDERED: ceFAZolin SODIUM 1 GM VIAL IVPB ONE (13:10)
[2019-09-14] MEDS ORDERED: ACETAMINOPHEN 325 MG TABLET (FP) PO PRN (13:50)
--- NOTE | 2019-09-14 13:58 | OP ---
Operative Note - Note: Operative Date: 09/14/19 Pre-Operative Diagnosis: rec. uti rt. renal colick, rt. flank pain, hematuria Operation: cysto, rt. retro, voiding cystourethrogram, rt. ureteroscopy and rt. jj stenting. Findings: rt. hydro, cystitis and trabeculated bladder. Post-Operative Diagnosis: Same as Pre-op Surgeon: Brennan Alvarado Anesthesia: General Specimens Removed: urine for cytology and c/s Estimated Blood Loss (mls): 0 Drains & Tubes with Location: 22cm-7f rt. jj stent Drains, Volume Out (mls): 0 Blood Volume Replaced (mls): 0 Fluid Volume Replaced (mls): 0 Operative Report Dictated: Yes
[2019-09-14] MEDS ORDERED: PROMETHAZINE HCL 25 MG/1 ML VIAL IVPUSH PRN (14:06)
[2019-09-14] MEDS ORDERED: oxyCODONE HCL 5 MG TABLET PO PRN (14:06)
[2019-09-14] MEDS ORDERED: ONDANSETRON 4 MG/2 ML VIAL IVPUSH PRN (14:06)
[2019-09-14] MEDS ORDERED: ACETAMINOPHEN 1000 MG/100 ML VIAL (NON FORMULARY) IVPB ONE (14:07)
[2019-09-14] MEDS: KETOROLAC TROMETHAMINE 10 MG TABLET PO PRN ×2 (17:38→22:48)
[2019-09-14] MEDS: SODIUM CHLORIDE 1,000 ML IV SCH (19:54)
[2019-09-14] MEDS: OXYBUTYNIN CHLORIDE 5 MG TABLET PO SCH (21:03)
[2019-09-14] MEDS: LIDOCAINE PATCH REMOVAL MC SCH (21:05)
[2019-09-15] MEDS: SODIUM CHLORIDE 1,000 ML IV SCH (00:12)
[2019-09-15] MEDS: KETOROLAC TROMETHAMINE 10 MG TABLET PO PRN ×2 (05:20→11:48)
--- NOTE | 2019-09-15 08:20 | DS ---
Physical Exam: SUBJECTIVE: Patient seen and examined Medically stable for discharge to home without services. Oral antibiotics x 5 days with f/u with Dr Alvarado OBJECTIVE: Vital Signs Period Temp Pulse Resp BP Sys/Renner Pulse Ox Last 24 Hr 98 F-98.7 F 56-81 12-20 101-121/52-76 97-100 PHYSICAL EXAM GENERAL: The patient is awake, alert, and fully oriented, in no acute distress. HEAD: Normal with no signs of trauma. EYES: PERRL, extraocular movements intact, sclera anicteric, conjunctiva clear. ENT: Ears normal, nares patent, oropharynx clear without exudates, moist mucous membranes. NECK: Trachea midline, full range of motion, supple. LUNGS: Breath sounds equal, clear to auscultation bilaterally, no wheezes, no crackles, no accessory muscle use. HEART: Regular rate and rhythm, S1, S2 without murmur, rub or gallop. ABDOMEN: Soft, nontender, nondistended, normoactive bowel sounds, no guarding, no rebound, no hepatosplenomegaly, no masses. EXTREMITIES: 2+ pulses, warm, well-perfused, no edema. NEUROLOGICAL: Cranial nerves II through XII grossly intact. Normal speech, gait not observed. PSYCH: Normal mood, normal affect. SKIN: Warm, dry, normal turgor, no rashes or lesions noted. LABS Laboratory Results - last 24 hr 09/14/19 09/14/19 07:50 07:50 WBC 7.2 RBC 4.13 Hgb 12.8 Hct 37.9 MCV 91.8 MCH 31.1 MCHC 33.9 RDW 13.6 Plt Count 288 MPV 9.9 Absolute Neuts (auto) 4.2 Neutrophils % 58.0 D Lymphocytes % 25.1 D Monocytes % 10.2 D Eosinophils % 6.0 H D Basophils % 0.7 Nucleated RBC % 0 Sodium 141 Potassium 4.6 Chloride 109 H Carbon Dioxide 26 Anion Gap 6 L BUN 7.5 Creatinine 0.6 Est GFR (CKD-EPI)AfAm 140.77 Est GFR (CKD-EPI)NonAf 121.46 Random Glucose 81 Calcium 9.3 Total Bilirubin 0.5 AST 30 ALT 39 Alkaline Phosphatase 93 Total Protein 7.2 Albumin 3.4 HOSPITAL COURSE: Date of Admission:09/10/19 Date of Discharge: 09/15/19 Patient is a 29 year old female with a significant past medical history of kidney stones (diagnosed 2012) and s/p stents with lithotripsy in June 2019 , recurrent UTIs, GERD and HLD. She presents to the ED on 09/10/2019 with right flank pain and hematuria. She was seen as an outpatient and placed on macrobid with urology follow up however, flank pain became severe and presented to [facility] for further management. Undewent stent placement with Dr Alvarado Problem List - Problems (1) Back pain Assessment/Plan: resolved Code(s): M54.9 - DORSALGIA, UNSPECIFIED (2) Prophylactic measure Assessment/Plan: FEN Fluids: adequate PO intake Electrolytes: stable Nutrition: regular diet DVT early ambulation Dispo Cleared for discharge to home Code(s): Z29.9 - ENCOUNTER FOR PROPHYLACTIC MEASURES, UNSPECIFIED (3) Pyelonephritis Assessment/Plan: STent placement by Dr Alvarado s/p rt. hydro, cystitis and trabeculated bladder follow up as outpatient abx x 5 days Code(s): N12 - TUBULO-INTERSTITIAL NEPHRITIS, NOT SPCF ACUTE OR CHRONIC (4) GERD (gastroesophageal reflux disease) Assessment/Plan: c/w protonix Code(s): K21.9 - GASTRO-ESOPHAGEAL REFLUX DISEASE WITHOUT ESOPHAGITIS Qualifiers: Esophagitis presence: esophagitis presence not specified Qualified Code(s) : K21.9 - Gastro-esophageal reflux disease without esophagitis Discharge to home Minutes to complete discharge: 40 Discharge Summary Problems reviewed: Yes Reason For Visit: PYELONEPHRITIS Current Active Problems Back pain (Acute) Prophylactic measure (Acute) Pyelonephritis (Acute) Hospital Course: HOSPITAL COURSE: Date of Admission:09/10/19 Date of Discharge: 09/15/19 Patient is a 29 year old female with a significant past medical history of kidney stones (diagnosed 2012) and s/p stents with lithotripsy in June 2019 , recurrent UTIs, GERD and HLD. She presents to the ED on 09/10/2019 with right flank pain and hematuria. She was seen as an outpatient and placed on macrobid with urology follow up however, flank pain became severe and presented to [facility] for further management. Undewent stent placement with Dr Alvarado Problem List - Problems (1) Back pain Assessment/Plan: resolved Code(s): M54.9 - DORSALGIA, UNSPECIFIED (2) Prophylactic measure Assessment/Plan: FEN Fluids: adequate PO intake Electrolytes: stable Nutrition: regular diet DVT early ambulation Dispo Cleared for discharge to home Code(s): Z29.9 - ENCOUNTER FOR PROPHYLACTIC MEASURES, UNSPECIFIED (3) Pyelonephritis Assessment/Plan: STent placement by Dr Alvarado s/p rt. hydro, cystitis and trabeculated bladder follow up as outpatient abx x 5 days Code(s): N12 - TUBULO-INTERSTITIAL NEPHRITIS, NOT SPCF ACUTE OR CHRONIC (4) GERD (gastroesophageal reflux disease) Assessment/Plan: c/w protonix Code(s): K21.9 - GASTRO-ESOPHAGEAL REFLUX DISEASE WITHOUT ESOPHAGITIS Qualifiers: Esophagitis presence: esophagitis presence not specified Qualified Code(s) : K21.9 - Gastro-esophageal reflux disease without esophagitis Discharge to home Condition: Improved - Instructions Diet, Activity, Other Instructions: DISCHARGE YOUR VISIT You came to the hospital because were having right flank pain. You had a UTI and started on antibiotics. The pain continued and Dr Alvarado placed a stent in your ureter. You will be discharged on antibiotics for 5 days MEDICATIONS Please continue to take your home medications as prescribed. There was some changes Macrodantin 50mg every 6 hours x 5 days DIET Continue your home diet ADDITIONAL CARE Please make an appointment to see your primary care provider, Dr Moore 1 week from today. Make an appointment with Dr Alvarado for follow up care-the stent will have to be revoed at a later date ADDITIONAL INFORMATION Please call 911 or come directly to the emergency department if you experience unusual headache, vision change, shortness of breath, chest pain, numbness, tingling, loss of alertness/awareness, loss of function, unusual bleeding or any alarming symptoms. Thank you for allowing me to care for you. Valentino Clark, VALERIEP, [facility] [phone] Referrals: Adelaida Moore DO [Primary Care Provider] - Brennan Alvarado MD [Staff Physician] - (call for appointment for stent removal) - Home Medications Comprehensive Discharge Medication List: Ambulatory Orders Albuterol Sulfate Inhaler - [Ventolin HFA Inhaler -] 1 - 2 inh PO Q4H PRN #1 inhaler 05/10/18 EPINEPHrine (EPI-PEN 0.3MG) [Epipen 0.3MG -] 0.3 mg IM ASDIR #2 pens 05/10/18 Famotidine [Pepcid] 40 mg PO DAILY #20 tablet 05/10/18 Loratadine [Claritin] 10 mg PO DAILY #20 tablet 05/10/18 Oxybutynin Chloride [Ditropan -] 5 mg PO BID #60 tablet 09/14/19 Prescription Drug Monitoring Program (I-STOP) results: I-STOP not reviewed Problem List - Problems (1) Back pain Code(s): M54.9 - DORSALGIA, UNSPECIFIED (2) Prophylactic measure Code(s): Z29.9 - ENCOUNTER FOR PROPHYLACTIC MEASURES, UNSPECIFIED (3) Pyelonephritis Code(s): N12 - TUBULO-INTERSTITIAL NEPHRITIS, NOT SPCF ACUTE OR CHRONIC (4) GERD (gastroesophageal reflux disease) Code(s): K21.9 - GASTRO-ESOPHAGEAL REFLUX DISEASE WITHOUT ESOPHAGITIS Qualifiers: Esophagitis presence: esophagitis presence not specified Qualified Code(s) : K21.9 - Gastro-esophageal reflux disease without esophagitis This patient is new to me today: No Emergency Visit: Yes ED Registration Date: 09/10/19 Care time: The patient presented to the Emergency Department on the above date and was hospitalized for further evaluation of their emergent condition. Critical Care patient: No - Discharge Referral Referred to [facility] Med P.C.: No
--- NOTE | 2019-09-15 11:00 | PN ---
DATE OF VISIT: DATE OF DICTATION: 09/14/2019 Patient is a 37-year-old female with recurrent urinary tract infections including frequency, dysuria, suprapubic pain, fever, and chills. She presently complains of right flank pain colicky in nature with radiation to the right groin. She also has suprapubic tenderness. The patient is afebrile. Her urine cultures came back clean. Her latest CBC is 7.2. BUN 7.5, creatinine 0.6. She had an abdominal CT several days ago, which showed a normal bladder and uterus. There was no fluid identified. The liver, spleen, pancreas, adrenal glands were unremarkable. There were no gallstones. Pyelonephritis was abdomen to be ruled out because of the lack of IV contrast. The patient will go to the OR for cystoscopy, a voiding cystourethroscopy, and a possible right retrograde pyelogram to rule out vesicoureteral reflux and/or ureteral pathology that is unable to be diagnosed from imaging studies. This was explained to patient in detail, and she agrees. Rashi [id number]
[2019-09-15] MEDS: PANTOPRAZOLE 40 MG TABLET PO SCH (11:31)
[2019-09-15] MEDS: LIDOCAINE 5% TOPICAL PATCH TP SCH (11:31)
[2019-09-15] MEDS: OXYBUTYNIN CHLORIDE 5 MG TABLET PO SCH (11:32)
[2019-09-15] MEDS ORDERED: NITROFURANTOIN MACROCRYSTAL 50 MG CAPSULE (FP) PO SCH (12:00)
[2019-09-15 15:03] VITALS: BP 109/71; PULSE 59; TEMP 98.5
--- NOTE | 2019-09-16 15:54 | PATH ---
Cytology Non-Gynecological Report Patient Name: LACEY IRVIN Med. Rec. #: [id number] /Age/Gender: 1990 (Age: 29) / F Account: [id number] Location: [facility] MED/SURG Taken: 09/14/2019 Received: 09/15/2019 Reported: 09/16/2019 Physicians: Brennan Alvarado M.D. Specimen(s) Received URINE Clinical History Pyelonephritis Final Diagnosis URINE FOR CYTOLOGY: SATISFACTORY FOR EVALUATION. NEGATIVE FOR HIGH GRADE UROTHELIAL CARCINOMA. SCATTERED UROTHELIAL CELLS PRESENT. RED BLOOD CELLS PRESENT. Electronically Signed Nena Morales M.D. Gross Description Approximately 35 to cc of yellow fluid received fresh. One cytofunnel prepared and Pap stained.
--- NOTE | 2019-09-30 12:32 | OP ---
DATE OF ADMISSION: 09/10/2019 PREOPERATIVE DIAGNOSIS: Recurrent urinary tract infections, right renal colic, right flank pain, persistent microscopic hematuria. OPERATIVE PROCEDURE: Cystourethroscopy, right retrograde pyelogram, voiding cystourethrogram, right ureteroscopy, and placement of a right JJ stent. ANESTHESIA: General DESCRIPTION OF PROCEDURE: Under above-stated anesthesia, patient is prepped and draped in the usual sterile manner. She is placed in the dorsal lithotomy position. External genitalia appeared to be within normal limits. Cystoscopy was performed under direct vision using a continuous flow 30-degree scope. Bladder was entered. This revealed a generalized hyperemia of the bladder with a grade 1 trabeculation. Urine was collected for culture and sensitivity. Inspection of the bladder revealed no lesions or calculi. Ureteral orifices were within normal limits with efflux of clear urine. A Flexi-Tip catheter was placed in the right ureteral orifice, and 5 mL of contrast was injected. This revealed a dilated right renal system. No filling defects were noted. Therefore, a Glidewire was passed up the right renal unit. A semirigid ureteroscope was then introduced, and ureteroscopy was performed per usual manner. Lower ureter was within normal limits. Renal pelvis appeared to be dilated. No lesions were noted. No calculi were seen. Therefore, the ureteroscope was withdrawn. A 22-cm 7-Thai right JJ stent was left in place. X-rays confirmed good position of the stent. The bladder was emptied. The scope was removed. The patient tolerated the procedure well. She returned to the recovery room in good condition. Rashi [id number]
== END 2019-09-15 15:46 | disposition home or self-care (01) | DRG 463 ==
LOC: JER 12:31 → JERBED 18:09 → J8W 19:14
PROVIDERS: ADMIT Internal Medicine; ATTEND Nurse Practitioner Acute Care
PROC: 0T768DZ Dilation of Right Ureter with Intraluminal Device, Via Natural or Artificial Opening Endoscopic (ICD-10-PCS; principal; 2019-09-14 11:00)
PROC: BT0BZZZ Plain Radiography of Bladder and Urethra (ICD-10-PCS; 2019-09-14 11:00)
PROC: BT1BZZZ Fluoroscopy of Bladder and Urethra (ICD-10-PCS; 2019-09-14 11:00)
DX: N12 Tubulo-interstitial nephritis, not specified as acute or chronic (principal); K21.9 Gastro-esophageal reflux disease without esophagitis; E78.5 Hyperlipidemia, unspecified; M54.9 Dorsalgia, unspecified; N13.30 Unspecified hydronephrosis
CPT/HCPCS: 36415; 74176-TC; 76000-TC-FY; 80053; 81003; 83735; 84703; 85025; 87086; 88108; 93005; 93010; 94010; 94760; 99282-25; J0131; J7030

== ENCOUNTER 2020-07-23 17:09 | Emergency (ER) | payer OTHER ==
[2020-07-23 17:51] VITALS: TEMP 98.5; BMI 28.1
[2020-07-23 19:24] VITALS: BP 132/91; PULSE 84
== END 2020-07-23 19:44 | disposition home or self-care (01) ==
LOC: JER 17:09
DX: Z11.59 Encounter for screening for other viral diseases (principal)
CPT/HCPCS: 71045-TC-FY; 99284-25

== ENCOUNTER 2021-03-12 18:05 | Emergency (ER) | payer OTHER ==
[2021-03-12 18:12] VITALS: BP 136/85; PULSE 81; TEMP 98.7; BMI 29.9
== END 2021-03-12 21:36 | disposition left against medical advice (07) ==
LOC: JER 18:05
DX: R10.31 Right lower quadrant pain (principal)
CPT/HCPCS: 99281-25

== ENCOUNTER 2021-03-19 04:42 | Day surgery (SDC) | payer OTHER ==
[2021-03-15 16:42] VITALS: BMI 29.7
[2021-03-19] MEDS ORDERED: MIDAZOLAM HCL 2 MG/2 ML SINGLE DOSE VIAL ONE (15:15)
[2021-03-19] MEDS ORDERED: PROPOFOL 20 ML ONE (15:15)
[2021-03-19] MEDS ORDERED: ceFAZolin SODIUM 1 GM VIAL IVPB ONE (15:27)
[2021-03-19] MEDS ORDERED: DEXAMETHASONE SOD PHOSPHATE 4 MG/1 ML VIAL ONE (15:34)
[2021-03-19] MEDS ORDERED: KETOROLAC TROMETHAMINE 30 MG/1 ML VIAL ONE (15:34)
[2021-03-19] MEDS ORDERED: ceFAZolin SODIUM 1 GM VIAL ONE (15:34)
[2021-03-19] MEDS ORDERED: oxyCODONE HCL 5 MG TABLET PO PRN (15:59)
[2021-03-19] MEDS ORDERED: ONDANSETRON 4 MG/2 ML VIAL IVPUSH PRN (15:59)
[2021-03-19] MEDS ORDERED: PROMETHAZINE HCL 25 MG/1 ML VIAL IVPUSH PRN (15:59)
[2021-03-19] MEDS ORDERED: ONDANSETRON 4 MG/2 ML VIAL ONE (17:01)
[2021-03-19] MEDS ORDERED: PANTOPRAZOLE SODIUM 40 MG VIAL IVPUSH ONE (17:36)
[2021-03-19] MEDS ORDERED: PROMETHAZINE HCL 25 MG/1 ML VIAL ONE (17:41)
[2021-03-19 18:18] VITALS: TEMP 98.3
[2021-03-19] MEDS ORDERED: oxyCODONE HCL 5 MG TABLET ONE (18:37)
[2021-03-19 19:48] VITALS: BP 119/84; PULSE 72
== END 2021-03-19 20:39 | disposition home or self-care (01) ==
LOC: JASU-SURG 04:42
PROVIDERS: ATTEND Urology
PROC: 0T768DZ Dilation of Right Ureter with Intraluminal Device, Via Natural or Artificial Opening Endoscopic (ICD-10-PCS; principal; 2021-03-19 13:00)
DX: N13.1 Hydronephrosis with ureteral stricture, not elsewhere classified (principal)
CPT/HCPCS: 81025; 87086; 94760